=== PATIENT | female | born 1980 | race African-American/Black ===

== ENCOUNTER 2017-06-01 | Emergency (ER) | payer BC, SELFPAY ==
--- NOTE | 2017-06-01 01:38 | EDPHYS ---
Physician Documentation [facility] Name: Catrina Ivy Age: 36 yrs Sex: Female : 1980 Arrival Date: 06/01/2017 Time: 00:55 Bed 19 Private MD: ED Physician Scot Morales HPI: 06/01 01:26 This 36 yrs old Black Female presents to ER via Ambulatory with complaints of Back Pain.gs 01:26 The patient presents with pain that is acute. gs 01:29 The symptoms are located in the low back. Onset: The symptoms/episode began/occurred gs yesterday. The pain does not radiate. Associated signs and symptoms: Pertinent negatives: abdominal pain, constipation, incontinence, numbness, tingling, urinary retention, weakness. The problem was sustained when bending over, when lifting. Modifying factors: the patient symptoms are aggravated by any movement, bending. Severity of symptoms: At their worst the symptoms were moderate, in the emergency department the symptoms are unchanged. The patient has experienced similar episodes in the past, multiple times. 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 - Social history:: Smoking status: Patient/guardian denies using tobacco. ROS: 01:29 All other systems are negative. gs Exam: 01:29 Head/Face: Normocephalic, atraumatic. Eyes: Pupils equal round and reactive to light, gs extra-ocular motions intact. Lids and lashes normal. Conjunctiva and sclera are non-icteric and not injected. Cornea within normal limits. Periorbital areas with no swelling, redness, or edema. ENT: Nares patent. No nasal discharge, no septal abnormalities noted. Tympanic membranes are normal and external auditory canals are clear. Oropharynx with no redness, swelling, or masses, exudates, or evidence of obstruction, uvula midline. Mucous membranes moist. Neck: Trachea midline, no thyromegaly or masses palpated, and no cervical lymphadenopathy. Supple, full range of motion without nuchal rigidity, or vertebral point tenderness. No Meningismus. Chest/axilla: Normal chest wall appearance and motion. Nontender with no deformity. No lesions are appreciated. Cardiovascular: Regular rate and rhythm with a normal S1 and S2. No gallops, murmurs, or rubs. Normal PMI, no JVD. No pulse deficits. Respiratory: Lungs have equal breath sounds bilaterally, clear to auscultation and percussion. No rales, rhonchi or wheezes noted. No increased work of breathing, no retractions or nasal flaring. Abdomen/GI: Soft, non-tender, with normal bowel sounds. No distension or tympany. No guarding or rebound. No evidence of tenderness throughout. Skin: Warm, dry with normal turgor. Normal color with no rashes, no lesions, and no evidence of cellulitis. MS/ Extremity: Pulses equal, no cyanosis. Neurovascular intact. Full, normal range of motion. Neuro: Awake and alert, GCS 15, oriented to person, place, time, and situation. Cranial nerves II-XII grossly intact. Motor strength 5/5 in all extremities. Sensory grossly intact. Cerebellar exam normal. Normal gait. 01:29 Constitutional: The patient appears alert, awake. 01:29 Back: pain, that is mild, of the left low back and right low back. Vital Signs: 01:09 BP 123 / 66; Pulse 68; Resp 16; Temp 97.4(TE); Pulse Ox 100% on R/A; Weight 90.72 kg; lp1 Height 6 ft. 0 in. (182.88 cm); Pain 9/10; 01:09 Body Mass Index 27.12 (90.72 kg, 182.88 cm) lp1 MDM: 01:14 Patient medically screened. 01:29 Differential diagnosis: arthritis, chronic back pain, Ligament Injury ruptured disc. Data reviewed: vital signs, nurses notes. Response to treatment: There is no appreciated change of the patient's symptoms at this time. Administered Medications: No medications were administered Disposition: 01:29 lower back strain, chronic pain. Disposition: 06/01/17 01:38 Discharged to Home. Impression: Encounter for screening, unspecified. - Condition is Stable. - Work release form, Medication Reconciliation Form, Thank You Letter, Antibiotic Education, Prescription Opioid Use form. - Follow up: Private Physician; When: 2 - 3 days. Signatures: Nichol Max, RN RN lp1 Bárbara Lambert RN RN ea Scot Morales MD MD gs
--- NOTE | 2017-06-01 01:38 | ER ---
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 Transition of care: patient was not received from another setting of care. Onset of symptoms was June 01, 2017. Care prior to arrival: None. 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 - Social history:: Smoking status: Patient/guardian denies using tobacco. Screenin:09 Abuse screen: Denies threats or abuse. Denies injuries from another. Nutritional lp1 screening: No deficits noted. Tuberculosis screening: No symptoms or risk factors identified. Fall Risk None identified. Assessment: 01:25 General: Appears in no apparent distress. Behavior is calm, cooperative, appropriate ea for age. Pain: Complains of pain in thoracic area and lumbar area Pain currently is 9 out of 10 on a pain scale. Quality of pain is described as aching. Neuro: Level of Consciousness is awake, alert, obeys commands, Oriented to person, place, time, situation. Cardiovascular: Patient's skin is warm and dry. Respiratory: Airway is patent Respiratory effort is even, unlabored, Respiratory pattern is regular, symmetrical. GI: No signs and/or symptoms were reported involving the gastrointestinal system. : No signs and/or symptoms were reported regarding the genitourinary system. EENT: No signs and/or symptoms were reported regarding the EENT system. Derm: Skin is dry, Skin is normal, Skin temperature is warm. Musculoskeletal: Range of motion: intact in all extremities. 01:48 Reassessment: Patient and/or family updated on plan of care and expected duration. Pain ea level reassessed. Patient is alert, oriented x 3, equal unlabored respirations, skin warm/dry/pink. Vital Signs: 01:09 BP 123 / 66; Pulse 68; Resp 16; Temp 97.4(TE); Pulse Ox 100% on R/A; Weight 90.72 kg; lp1 Height 6 ft. 0 in. (182.88 cm); Pain 9/10; 01:09 Body Mass Index 27.12 (90.72 kg, 182.88 cm) lp1 ED Course: 00:55 Patient arrived in ED. ds1 00:57 Scot Morales MD is Attending Physician. gs 01:07 Triage completed. lp1 01:07 Arm band placed on left wrist. lp1 01:09 Patient has correct armband on for positive identification. lp1 01:25 Bárbara Lambert RN is Primary Nurse. ea 01:47 No provider procedures requiring assistance completed. Patient did not have IV access ea during this emergency room visit. Administered Medications: No medications were administered Outcome: 01:38 Discharge ordered by . gs 01:49 Discharged to home ambulatory, with family. ea 01:49 Condition: unchanged 01:49 Following a medical screening exam, the patient was provided information regarding alternative care sites and resources available per registration personnel. 01:55 Patient left the ED. ea Signatures: Destiney Mccallum ds1 Nichol Max RN RN lp1 Bárbara Lambert, Scot Blanco RN, ea, MD MD
== END 2017-06-01 01:55 | disposition home or self-care (01) ==
CPT/HCPCS: 99281

== ENCOUNTER 2017-12-21 07:43 | Emergency (ER) | payer SELFPAY ==
[2017-12-21] MEDS ORDERED: CETIRIZINE HCL 5 MG TABLET ONE (08:20)
--- NOTE | 2017-12-21 08:50 | EDPHYS ---
Physician Documentation [facility] Name: Catrina Ivy Age: 37 yrs Sex: Female : 1980 Arrival Date: 12/21/2017 Time: 07:46 Bed 18 Private MD: None, None ED Physician Dvaid Aden HPI: 12/21 08:04 This 37 yrs old Black Female presents to ER via Ambulatory with complaints of Cough, snw Congestion. 08:04 This 37 yrs old Black Female presents to ER via Ambulatory with complaints of Cough, snw Congestion. 08:04 The patient or guardian reports cough, described as moderate, flu symptoms, low-grade snw fever, myalgias, no appetite. Onset: The symptoms/episode began/occurred gradually, 1 week(s) ago, and became persistent. Severity of symptoms: At their worst the symptoms were moderate. Associated signs and symptoms: Pertinent positives: rhinorrhea, sore throat. The patient has experienced similar episodes in the past. The patient has not recently seen a physician. 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 - Social history:: Smoking status: Patient/guardian denies using tobacco. - Ebola Screening: : No symptoms or risks identified at this time. ROS: 08:10 Eyes: Negative for injury, pain, redness, and discharge. snw 08:10 Neck: Negative for injury, pain, and swelling, Cardiovascular: Negative for chest pain, palpitations, and edema, Abdomen/GI: Negative for abdominal pain, nausea, vomiting, diarrhea, and constipation, Back: Negative for injury and pain, : Negative for injury, bleeding, discharge, and swelling, MS/Extremity: Negative for injury and deformity, Skin: Negative for injury, rash, and discoloration, Neuro: Negative for headache, weakness, numbness, tingling, and seizure. 08:10 Constitutional: Positive for body aches, fatigue, malaise, poor PO intake. 08:10 ENT: Positive for hoarseness, sinus congestion, sinus pain, sore throat. 08:10 Respiratory: Positive for cough, with rust-colored sputum. Exam: 08:09 Constitutional: This is a well developed, well nourished patient who is awake, alert, snw and in no acute distress. Head/Face: Normocephalic, atraumatic. Eyes: Pupils equal round and reactive to light, extra-ocular motions intact. Lids and lashes normal. Conjunctiva and sclera are non-icteric and not injected. Cornea within normal limits. Periorbital areas with no swelling, redness, or edema. 08:09 Neck: Trachea midline, no thyromegaly or masses palpated, and no cervical lymphadenopathy. Supple, full range of motion without nuchal rigidity, or vertebral point tenderness. No Meningismus. Chest/axilla: Normal chest wall appearance and motion. Nontender with no deformity. No lesions are appreciated. Cardiovascular: Regular rate and rhythm with a normal S1 and S2. No gallops, murmurs, or rubs. Normal PMI, no JVD. No pulse deficits. Respiratory: Lungs have equal breath sounds bilaterally, clear to auscultation and percussion. No rales, rhonchi or wheezes noted. No increased work of breathing, no retractions or nasal flaring. Abdomen/GI: Soft, non-tender, with normal bowel sounds. No distension or tympany. No guarding or rebound. No evidence of tenderness throughout. Back: No spinal tenderness. No costovertebral tenderness. Full range of motion. Skin: Warm, dry with normal turgor. Normal color with no rashes, no lesions, and no evidence of cellulitis. MS/ Extremity: Pulses equal, no cyanosis. Neurovascular intact. Full, normal range of motion. Neuro: Awake and alert, GCS 15, oriented to person, place, time, and situation. Cranial nerves II-XII grossly intact. Motor strength 5/5 in all extremities. Sensory grossly intact. Cerebellar exam normal. Normal gait. 08:09 ENT: TM's: fluid levels, bilaterally, Nose: Nasal mucosa: edematous, Mouth: is normal, Voice: is hoarse. Vital Signs: 08:00 BP 137 / 65; Pulse 59; Resp 16; Temp 98.4(O); Pulse Ox 100% on R/A; Weight 96.16 kg; dh3 Height 6 ft. 0 in. (182.88 cm); Pain 9/10; 09:15 BP 136 / 84; Pulse 67; Resp 16 S; Pulse Ox 100% on R/A; jl7 08:00 Body Mass Index 28.75 (96.16 kg, 182.88 cm) [facility] MDM: 07:53 Patient medically screened. snw 08:55 Data reviewed: vital signs, nurses notes. Data interpreted: Pulse oximetry: on room air snw is 100 %. Counseling: I had a detailed discussion with the patient and/or guardian regarding: the historical points, exam findings, and any diagnostic results supporting the discharge/admit diagnosis, radiology results, the need for outpatient follow up, for definitive care, to return to the emergency department if symptoms worsen or persist or if there are any questions or concerns that arise at home. Response to treatment: There is no appreciated change of the patient's symptoms at this time. Special discussion: Based on the history and exam findings, there is no indication for further emergent testing or inpatient evaluation. I discussed with the patient/guardian the need to see the primary care provider for further evaluation of the symptoms. 12/21 07:58 Order name: Flu; Complete Time: 09:05 snw 12/21 07:58 Order name: Chest Pa And Lat (2 Views) XRAY; Complete Time: 10:25 snw Administered Medications: 08:14 Drug: ZyrTEC - Cetirizine 10 mg Route: PO; jl7 08:44 Follow up: Response: No adverse reaction [facility] Disposition: 09:35 Co-signature as Attending Physician, David Aden MD. rn Disposition: 12/21/17 08:49 Discharged to Home. Impression: Acute bronchitis, Otitis media, unspecified. - Condition is Stable. - Discharge Instructions: Acute Bronchitis, Adult, Otitis Media, Adult, Fever, Adult. - Prescriptions for Zyrtec 10 mg Oral Tablet - take 1 tablet by ORAL route once daily As needed; 20 tablet. Tessalon Perles 100 mg Oral Capsule - take 1 capsule by ORAL route every 8 hours As needed; 15 capsule. Zithromax 500 mg Oral Tablet - take 1 tablet by ORAL route once daily for 5 days; 5 tablet. - Work release form, Medication Reconciliation Form, Thank You Letter, Antibiotic Education, Prescription Opioid Use form. - Follow up: Emergency Department; When: As needed; Reason: Worsening of condition. Follow up: Private Physician; When: 2 - 3 days; Reason: Recheck today's complaints, Continuance of care, Re-evaluation by your physician. Signatures: Dispatcher [employer] EDSummer Mchugh, [employer] WATER METER READER-Csnw David Aden MD MD rn Leal, Jahala, RN RN jl7 Corrections: (The following items were deleted from the chart) 09:16 08:49 12/21/2017 08:49 Discharged to Home. Impression: Acute bronchitis; Otitis media, jl7 unspecified. Condition is Stable. Forms are Medication Reconciliation Form, Thank You Letter, Antibiotic Education, Prescription Opioid Use. Follow up: Emergency Department; When: As needed; Reason: Worsening of condition. Follow up: Private Physician; When: 2 - 3 days; Reason: Recheck today's complaints, Continuance of care, Re-evaluation by your physician. snw
--- NOTE | 2017-12-21 08:50 | ER ---
Nurse's Notes [facility] Name: Catrina Ivy Age: 37 yrs Sex: Female : 1980 Arrival Date: 12/21/2017 Time: 07:46 Bed 18 Private MD: None, None Diagnosis: Acute bronchitis;Otitis media, unspecified Presentation: 12/21 07:52 Presenting complaint: Patient states: Sore throat x 1 week and now with chest jl7 congestion. Transition of care: patient was not received from another setting of care. Onset of symptoms was December 14, 2017. Risk Assessment: Do you want to hurt yourself or someone else? Patient reports no desire to harm self or others. Initial Sepsis Screen: Does the patient meet any 2 criteria? No. Patient's initial sepsis screen is negative. Does the patient have a suspected source of infection? No. Patient's initial sepsis screen is negative. Care prior to arrival: None. 07:52 Method Of Arrival: Ambulatory jl7 07:52 Acuity: ELICEO 4 jl7 Triage Assessment: 07:55 General: Appears in no apparent distress. uncomfortable, Behavior is calm, cooperative, jl7 appropriate for age. Pain: Complains of pain in "My chest roper when I breathe in." Pain currently is 9 out of 10 on a pain scale. EENT: Throat. Neuro: Level of Consciousness is awake, alert, obeys commands, Oriented to person, place, time, situation. Cardiovascular: Patient's skin is warm and dry. Respiratory: Airway is patent Respiratory effort is even, unlabored, Respiratory pattern is regular, symmetrical, Breath sounds are clear. Derm: Skin is pink, warm \\T\\ dry. Musculoskeletal: No signs and/or symptoms reported regarding the musculoskeletal system. 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 - Social history:: Smoking status: Patient/guardian denies using tobacco. - Ebola Screening: : No symptoms or risks identified at this time. Screenin:00 Abuse screen: Denies threats or abuse. Denies injuries from another. Nutritional jl7 screening: No deficits noted. Tuberculosis screening: No symptoms or risk factors identified. Fall Risk None identified. Assessment: 08:55 Reassessment: Patient appears in no apparent distress at this time. No changes from jl7 previously documented assessment. Patient and/or family updated on plan of care and expected duration. Pain level reassessed. Patient is alert, oriented x 3, equal unlabored respirations, skin warm/dry/pink. Cardiovascular: Patient's skin is warm and dry. Respiratory: Airway is patent Respiratory effort is even, unlabored, Respiratory pattern is regular, symmetrical. Vital Signs: 08:00 BP 137 / 65; Pulse 59; Resp 16; Temp 98.4(O); Pulse Ox 100% on R/A; Weight 96.16 kg; 3 Height 6 ft. 0 in. (182.88 cm); Pain 9/10; 09:15 BP 136 / 84; Pulse 67; Resp 16 S; Pulse Ox 100% on R/A; jl7 08:00 Body Mass Index 28.75 (96.16 kg, 182.88 cm) [facility] ED Course: 07:46 Patient arrived in ED. mr 07:47 None, None is Private Physician. mr 07:48 Robert Kenyon, DENIS is Primary Nurse. jl7 07:49 Summer Cote FNP-C is [facility]. snw 07:49 David Aden MD is Attending Physician. snw 07:54 Triage completed. jl7 07:55 Arm band placed on right wrist. jl7 08:00 Patient has correct armband on for positive identification. Bed in low position. Call jl light in reach. Side rails up X 1. Pulse ox on. NIBP on. 08:04 Flu and/or RSV swab sent to lab. 3 08:30 Chest Pa And Lat (2 Views) XRAY In Process Unspecified. EDMS 09:16 No provider procedures requiring assistance completed. Patient did not have IV access jl7 during this emergency room visit. Administered Medications: 08:14 Drug: ZyrTEC - Cetirizine 10 mg Route: PO; jl7 08:44 Follow up: Response: No adverse reaction jl7 Outcome: 08:49 Discharge ordered by . snw 09:16 Discharged to home ambulatory. jl7 09:16 Condition: stable 09:16 Discharge instructions given to patient, Instructed on discharge instructions, follow up and referral plans. medication usage, Demonstrated understanding of instructions, follow-up care, medications, Prescriptions given X 3. 09:16 Patient left the ED. jl7 Signatures: Dispatcher [employer] EDMS Summer Cote, SABRIN[employer] HYDRAULIC MINER BLASTING-Aricw KalebGay Jahala, RN RN jl7 Belkys Barnes 3 Corrections: (The following items were deleted from the chart) 08:10 07:55 BP 137 / 65; Pulse 59bpm; Resp 16bpm; Pulse Ox 100% RA; Temp 98.4F Oral; Pain dh3 11/05; dh3
--- NOTE | 2017-12-21 09:10 | RAD REPORT ---
EXAM DESCRIPTION: RAD - Chest Pa And Lat (2 Views) - 12/21/2017 8:35 am CLINICAL HISTORY: Chest pain, cough and congestion COMPARISON: October 2012 TECHNIQUE: PA and lateral views of the chest were obtained. FINDINGS: The lungs are clear. Lung markings are similar to comparison. Heart size is normal and ce ntral vasculature is within normal limits. No pleural effusion or pneumothorax seen. No acute bone finding. Prominent scoliosis noted with scoliosis rods in place. No aortic abnormality. IMPRESSION: No acute cardiopulmonary process. No significant interval change.
== END 2017-12-21 09:16 | disposition home or self-care (01) ==
LOC: ER 07:43
DX: J20.9 Acute bronchitis, unspecified (principal); H66.90 Otitis media, unspecified, unspecified ear; Z88.1 Allergy status to other antibiotic agents
CPT/HCPCS: 71046; 87804; 99284

== ENCOUNTER 2018-04-18 18:04 | Emergency (ER) | payer SELFPAY ==
--- NOTE | 2018-04-18 20:23 | EDPHYS ---
Physician Documentation [facility] Name: Catrina Ivy Age: 37 yrs Sex: Female : 1980 Arrival Date: 04/18/2018 Time: 18:06 Bed 11 Private MD: ED Physician Scot Morales HPI: 04/18 21:25 This 37 yrs old Black Female presents to ER via Ambulatory with complaints of Rash. gs 21:25 The patient's rash thought to be caused by an unknown cause. The rash is located on the gs body diffusely. The rash can be described as erythematous. Onset: The symptoms/episode began/occurred 2 day(s) ago. Associated signs and symptoms: Pertinent positives: itching, Pertinent negatives: fever, swelling of lips, vomiting. Severity of symptoms: At their worst the symptoms were moderate in the emergency department the symptoms are unchanged. Treatment given at home: Benadryl. The patient has not experienced similar symptoms in the past. 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 - Social history:: Smoking status: Patient/guardian denies using tobacco. - Ebola Screening: : No symptoms or risks identified at this time. ROS: 21:25 All other systems are negative. gs Exam: 21:25 Head/Face: Normocephalic, atraumatic. Eyes: Pupils equal round and reactive to light, gs extra-ocular motions intact. Lids and lashes normal. Conjunctiva and sclera are non-icteric and not injected. Cornea within normal limits. Periorbital areas with no swelling, redness, or edema. ENT: Nares patent. No nasal discharge, no septal abnormalities noted. Tympanic membranes are normal and external auditory canals are clear. Oropharynx with no redness, swelling, or masses, exudates, or evidence of obstruction, uvula midline. Mucous membranes moist. Neck: Trachea midline, no thyromegaly or masses palpated, and no cervical lymphadenopathy. Supple, full range of motion without nuchal rigidity, or vertebral point tenderness. No Meningismus. Chest/axilla: Normal chest wall appearance and motion. Nontender with no deformity. No lesions are appreciated. Cardiovascular: Regular rate and rhythm with a normal S1 and S2. No gallops, murmurs, or rubs. Normal PMI, no JVD. No pulse deficits. Respiratory: Lungs have equal breath sounds bilaterally, clear to auscultation and percussion. No rales, rhonchi or wheezes noted. No increased work of breathing, no retractions or nasal flaring. Abdomen/GI: Soft, non-tender, with normal bowel sounds. No distension or tympany. No guarding or rebound. No evidence of tenderness throughout. Back: No spinal tenderness. No costovertebral tenderness. Full range of motion. MS/ Extremity: Pulses equal, no cyanosis. Neurovascular intact. Full, normal range of motion. Neuro: Awake and alert, GCS 15, oriented to person, place, time, and situation. Cranial nerves II-XII grossly intact. Motor strength 5/5 in all extremities. Sensory grossly intact. Cerebellar exam normal. Normal gait. 21:25 Constitutional: The patient appears in no acute distress, alert, awake. 21:25 Skin: mild fine erythematous rash face legs and hands scantly distributed. Vital Signs: 18:17 BP 126 / 53; Pulse 80; Resp 18 S; Temp 98.2(TE); Pulse Ox 99% on R/A; Weight 92.71 kg aa5 (R); Height 5 ft. 11 in. (180.34 cm) (R); Pain 0/10; 18:17 Body Mass Index 28.51 (92.71 kg, 180.34 cm) aa5 MDM: 20:18 Patient medically screened. 21:25 Data reviewed: vital signs, nurses notes. Response to treatment: There is no gs appreciated change of the patient's symptoms at this time, and as a result, I will discharge patient. Administered Medications: No medications were administered Disposition: 04/18/18 20:23 Discharged to Home. Impression: Rash and other nonspecific skin eruption. - Condition is Stable. - Discharge Instructions: Rash, [id number]. - Prescriptions for Prednisone 20 mg Oral Tablet - take 1 tablet by ORAL route once daily for 5 days; 5 tablet. Zyrtec 10 mg Oral Tablet - take 1 tablet by ORAL route once daily As needed; 20 tablet. - Medication Reconciliation Form, Thank You Letter, Antibiotic Education, Prescription Opioid Use form. - Follow up: Michael Kay MD; When: 2 - 3 days; Reason: Re-evaluation by your physician. Signatures: Kerry Culver RN RN iw Kelli Orr RN RN aa5 Scot Morales MD MD gs Corrections: (The following items were deleted from the chart) 20:31 20:23 04/18/2018 20:23 Discharged to Home. Impression: Rash and other nonspecific skin iw eruption. Condition is Stable. Forms are Medication Reconciliation Form, Thank You Letter, Antibiotic Education, Prescription Opioid Use. Follow up: Michael Kay; When: 2 - 3 days; Reason: Re-evaluation by your physician. gs
--- NOTE | 2018-04-18 20:23 | ER ---
Nurse's Notes [facility] Name: Catrina Ivy Age: 37 yrs Sex: Female : 1980 Arrival Date: 04/18/2018 Time: 18:06 Bed 11 Private MD: Diagnosis: Rash and other nonspecific skin eruption Presentation: 04/18 18:15 Presenting complaint: Patient states: diffuse rash that it's itchy and began Sunday. aa5 Transition of care: patient was not received from another setting of care. Onset of symptoms was March 2018. Risk Assessment: Do you want to hurt yourself or someone else? Patient reports no desire to harm self or others. Initial Sepsis Screen: Does the patient meet any 2 criteria? No. Patient's initial sepsis screen is negative. Does the patient have a suspected source of infection? No. Patient's initial sepsis screen is negative. Care prior to arrival: None. 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 - Social history:: Smoking status: Patient/guardian denies using tobacco. - Ebola Screening: : No symptoms or risks identified at this time. Screenin:15 Abuse screen: Denies threats or abuse. Denies injuries from another. Nutritional iw screening: No deficits noted. Tuberculosis screening: No symptoms or risk factors identified. Fall Risk None identified. Assessment: 20:14 General: Appears in no apparent distress. Behavior is calm, cooperative. Pain: Denies iw pain. Neuro: Level of Consciousness is awake, alert, obeys commands. Cardiovascular: Patient's skin is warm and dry. Respiratory: Respiratory effort is even, unlabored, Respiratory pattern is regular. GI: No signs and/or symptoms were reported involving the gastrointestinal system. Derm: Skin is intact, is healthy with good turgor. Musculoskeletal: Range of motion: intact in all extremities. Vital Signs: 18:17 BP 126 / 53; Pulse 80; Resp 18 S; Temp 98.2(TE); Pulse Ox 99% on R/A; Weight 92.71 kg aa5 (R); Height 5 ft. 11 in. (180.34 cm) (R); Pain 0/10; 18:17 Body Mass Index 28.51 (92.71 kg, 180.34 cm) aa5 ED Course: 18:06 Patient arrived in ED. mr 18:15 Arm band placed on. aa5 18:16 Triage completed. aa5 18:20 Patient has correct armband on for positive identification. iw 19:29 Kerry Culver, RN is Primary Nurse. iw 20:03 Scot Morales MD is Attending Physician. gs 20:15 No provider procedures requiring assistance completed. Patient did not have IV access iw during this emergency room visit. 20:22 Michael Kay MD is Referral Physician. gs Administered Medications: No medications were administered Outcome: 20:23 Discharge ordered by . gs 20:30 Discharged to home ambulatory. iw 20:30 Condition: good 20:30 Discharge instructions given to family, Instructed on discharge instructions, follow up and referral plans. medication usage, Demonstrated understanding of instructions, follow-up care, medications, Prescriptions given X 2. 20:31 Patient left the ED. iw Signatures: Gay Manuel mr Kerry Culver, RN RN Kelli Orr RN RN aa Scot Morales MD MD
== END 2018-04-18 20:31 | disposition home or self-care (01) ==
LOC: ER 18:04
DX: R21 Rash and other nonspecific skin eruption (principal); Z88.6 Allergy status to analgesic agent
CPT/HCPCS: 99282

== ENCOUNTER 2018-07-20 16:32 | Emergency (ER) | payer SELFPAY ==
--- NOTE | 2018-07-20 17:34 | RAD REPORT ---
EXAM DESCRIPTION: RAD - Chest Single View - 07/20/2018 5:27 pm CLINICAL HISTORY: Cough;Chest pain Chest pain. COMPARISON: Chest Pa And Lat (2 Views) dated 12/21/2017; CHEST SINGLE VIEW dated 11/11/2012 FINDINGS: Portable technique limits examination quality. Mild right upper lobe lung opacity is present, likely pneumonia. The heart is normal in size. No disp laced fractures.Scoliosis hardware noted. IMPRESSION: Early/developing right upper lobe pneumonia.
[2018-07-20 17:43] LABS: Protime INR 1.11
[2018-07-20 17:49] LABS: Absolute Monocytes 0.7 K/uL (0.1-1.3); Absolute Neutrophil 2.4 K/uL (1.8-8.0); Basophils % 0.7 % (0-1.3); Eosinophils % 1.8 % (0-4.4); Hematocrit 33.4 % (36.0-45.0); Lymphocytes % 37.8 % (15.3-44.8); MPV 10.5 fL (7.6-11.3); Monocytes % 14.1 % (3.3-12.3); RBC Red Blood Cell Count 4.86 M/uL (3.86-4.86)
[2018-07-20 18:01] LABS: ALT/SGPT 24 U/L (12-78); AST/SGOT 16 U/L (15-37); Albumin 3.8 g/dL (3.4-5.0); Alkaline Phosphatase 55 U/L (45-117); BUN Blood Urea Nitrogen 16 mg/dL (7-18); Bicarbonate 28 mmol/L (21-32); Bilirubin Direct < 0.1 mg/dL (0-0.2); Bilirubin Total 0.2 mg/dL (0.2-1.0); Glucose Level 81 mg/dL (74-106); NT PRO-BNP 17 pg/mL (<125); Potassium 3.8 mmol/L (3.5-5.1); Sodium Level 141 mmol/L (136-145); Troponin (Emerg Dept Use Only) < 0.02 ng/mL (0.0-0.045)
[2018-07-20 18:30] LABS: Blood Morphology Comment NOTED (NOT SEEN); Hypochromasia 1+; Platelet Estimate ADEQ; Urine White Blood Cell Casts OK
[2018-07-20] MEDS ORDERED: KETOROLAC 30 MG/ML INJ ONE (18:35)
--- NOTE | 2018-07-20 19:48 | RAD REPORT ---
EXAM DESCRIPTION: CT - Chest For Pe Angio - 07/20/2018 7:36 pm CLINICAL HISTORY: Chest pain. CHEST PAIN COMPARISON: CTANGIO CHEST FOR PE dated 11/12/2012 TECHNIQUE: CT angiogram of the pulmonary arteries was performed with MIP. All CT scans are performed using dose optimization technique as appropriate and may include automated exposure control or mA/KV adjustment according to patient size. FINDINGS: No evidence of pulmonary thromboembolism. No acute aortic finding demonstrated. Patchy airspace opacity is seen in the superior segment of the right lower lobe, likely representing pneumonia. No significant pericardial or pleural fluid. Scoliosis hardware is present in the spine. IMPRESSION: No evidence of pulmonary thromboembolism. Pneumonia is noted in the superior segment right lower lobe.
--- NOTE | 2018-07-20 20:17 | EDPHYS ---
Physician Documentation [facility] Name: Catrina Ivy Age: 37 yrs Sex: Female : 1980 Arrival Date: 07/20/2018 Time: 16:40 Bed 2 Private MD: QUIN Physician Bryan Butler HPI: 07/20 17:15 This 37 yrs old Black Female presents to ER via Ambulatory with complaints of Chest cp Pain. 17:15 The patient or guardian reports chest pain that is located primarily in the anterior cp chest wall. 17:15 The pain does not radiate. Associated signs and symptoms: Pertinent positives: cough, cp Pertinent negatives: diaphoresis, dizziness, headache, lower extremity pain, lower extremity swelling, lightheadedness, recent travel, shortness of breath, syncope, vomiting. The chest pain is described as sharp. Duration: The patient or guardian reports multiple episodes, that wax and wane. Modifying factors: the symptoms are aggravated by cough, deep breath. 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 - Social history:: Smoking status: Patient/guardian denies using tobacco. - Ebola Screening: : No symptoms or risks identified at this time. ROS: 17:20 Constitutional: Negative for body aches, chills, fever, poor PO intake. cp 17:20 Eyes: Negative for injury, pain, redness, and discharge. cp 17:20 ENT: Negative for drainage from ear(s), ear pain, sore throat, difficulty swallowing, difficulty handling secretions. 17:20 Cardiovascular: Positive for chest pain, with cough, Negative for edema, palpitations. 17:20 Respiratory: Positive for cough, Negative for shortness of breath, wheezing. 17:20 Abdomen/GI: Negative for abdominal pain, nausea, vomiting, and diarrhea, black/tarry stool, rectal bleeding. 17:20 Back: Negative for pain at rest, pain with movement, radiated pain. 17:20 : Negative for urinary symptoms, vaginal bleeding, vaginal discharge. 17:20 Skin: Negative for rash. 17:20 Neuro: Negative for altered mental status, dizziness, headache, numbness, syncope, near syncope, weakness. 17:20 All other systems are negative. Exam: 17:25 Constitutional: The patient appears in no acute distress, alert, awake, cp non-diaphoretic, non-toxic, well developed, well nourished. 17:25 Head/Face: Normocephalic, atraumatic. cp 17:25 Eyes: Periorbital structures: appear normal, Conjunctiva: normal, no exudate, no injection, Sclera: no appreciated abnormality, Lids and lashes: appear normal, bilaterally. 17:25 ENT: External ear(s): are unremarkable, Ear canal(s): are normal, clear, TM's: are normal, no evidence of bulging, no erythema, Nose: is normal, Mouth: Lips: moist, Oral mucosa: pink and intact, moist, Posterior pharynx: is normal, airway is patent, no erythema, no exudate. 17:25 Neck: ROM/movement: is normal, is supple, without pain, no range of motions limitations, no meningismus, no nuchal rigidity, Lymph nodes: no appreciated lymphadenopathy. 17:25 Chest/axilla: Inspection: normal, Palpation: crepitus, is not appreciated, tenderness, that is mild, of the mid-sternal area, that partially reproduces the patient's complaints. 17:25 Cardiovascular: Rate: normal, Rhythm: regular, Pulses: Pulses are 2+ in right radial artery and left radial artery. Heart sounds: murmur, not appreciated, rub, not appreciated, gallop, not appreciated, Edema: is not appreciated, JVD: is not appreciated. 17:25 Respiratory: the patient does not display signs of respiratory distress, Respirations: normal, no use of accessory muscles, no retractions, no splinting, no tachypnea, labored breathing, is not present, Breath sounds: decreased breath sounds, are not appreciated, stridor, is not appreciated, wheezing: is not appreciated. 17:25 Abdomen/GI: Inspection: abdomen appears normal, Bowel sounds: active, all quadrants, Palpation: abdomen is soft and non-tender, in all quadrants, rebound tenderness, is not appreciated, voluntary guarding, is not appreciated, involuntary guarding, is not appreciated. 17:25 Back: pain, is absent, ROM is normal. 17:25 Skin: no rash present. 17:25 Neuro: Orientation: to person, place \T\ time. Mentation: is normal, Cerebellar function: is grossly normal, Motor: moves all fours, strength is normal, Sensation: is normal. 17:45 ECG was reviewed by the Attending Physician. cp Vital Signs: 16:46 BP 117 / 67; Pulse 76; Resp 16; Temp 97.7; Pulse Ox 98% on R/A; Weight 84.37 kg; Height la1 5 ft. 11 in. (180.34 cm); 16:58 BP 121 / 69; Pulse 68; Resp 18; Pulse Ox 100% ; hj 17:34 BP 113 / 69; Pulse 65; Resp 18; Pulse Ox 100% on R/A; hj 18:24 BP 124 / 82; Pulse 83; Resp 18; Pulse Ox 100% on R/A; hj 19:10 BP 121 / 65; Pulse 70; Resp 16; Temp 97.3(T); Pulse Ox 99% ; rr5 20:26 BP 129 / 70; Pulse 78; Resp 17; Temp 97.5; Pulse Ox 99% on R/A; rr5 16:46 Body Mass Index 25.94 (84.37 kg, 180.34 cm) la1 MDM: 16:43 Patient medically screened. cp 17:30 Differential diagnosis: abnormal EKG, acute myocardial infarction, acute pericarditis, cp costochondritis, pericarditis, pleurisy, pneumonia, pneumothorax, pulmonary embolus, stable angina, unstable angina. 20:15 Data reviewed: vital signs, nurses notes, lab test result(s), EKG, radiologic studies, cp CT scan, plain films, and as a result, I will discharge patient. 20:15 Test interpretation: by ED physician or midlevel provider: ECG. cp 20:16 Counseling: I had a detailed discussion with the patient and/or guardian regarding: the cp historical points, exam findings, and any diagnostic results supporting the discharge/admit diagnosis, lab results, radiology results, the need for outpatient follow up, a family practitioner, to return to the emergency department if symptoms worsen or persist or if there are any questions or concerns that arise at home. 20:16 Response to treatment: the patient's symptoms have markedly improved after treatment, cp VSS. No signs of respiratory distress observed. Will discharge to home for continued monitoring. 07/20 17:18 Order name: Basic Metabolic Panel 07/20 17:18 Order name: CBC with Diff 07/20 17:18 Order name: LFT's 07/20 17:18 Order name: Magnesium; Complete Time: 18:16 07/20 17:18 Order name: NT PRO-BNP; Complete Time: 18:16 07/20 17:18 Order name: PT-INR; Complete Time: 19:56 07/20 18:00 Interpretation: Reviewed. 07/20 17:18 Order name: Troponin (emerg Dept Use Only); Complete Time: 18:16 07/20 17:18 Order name: Influenza Screen (a \T\ B); Complete Time: 18:16 07/20 17:18 Order name: Strep; Complete Time: 18:16 07/20 17:19 Order name: Basic Metabolic Panel; Complete Time: 18:16 EDOR 07/20 18:16 Interpretation: Normal except: GFR 74. 07/20 17:19 Order name: CBC with Automated Diff; Complete Time: 18:38 [facility] 07/20 18:17 Interpretation: Normal except: HGB 10.6; HCT 33.4; MCV 68.7; MCH 21.7; MCHC 31.6; RDW cp 16.8; MN% 14.1. 07/20 17:19 Order name: Liver (Hepatic) Function; Complete Time: 18:16 [facility] 07/20 17:53 Order name: CBC Smear Scan; Complete Time: 18:38 [facility] 07/20 18:15 Order name: Throat Culture [facility] 07/20 17:18 Order name: XRAY Chest (1 view); Complete Time: 18:00 07/20 17:18 Order name: EKG; Complete Time: 17:20 07/20 17:18 Order name: Cardiac monitoring; Complete Time: 17:23 07/20 17:18 Order name: EKG - Nurse/Tech; Complete Time: 17:38 07/20 17:18 Order name: IV Saline Lock; Complete Time: 17:38 07/20 17:18 Order name: Labs collected and sent; Complete Time: 17:38 cp 07/20 17:18 Order name: O2 Per Protocol; Complete Time: 17:23 cp 07/20 17:18 Order name: O2 Sat Monitoring; Complete Time: 17:23 cp 07/20 18:40 Order name: LAB Add On cp 07/20 18:43 Order name: D-Dimer; Complete Time: 19:56 [facility] 07/20 18:52 Order name: CT Chest For PE Angio; Complete Time: 19:56 cp EC:45 Rate is 64 beats/min. Rhythm is regular. DE interval is normal. QRS interval is normal. cp QT interval is normal. Interpreted by me. Reviewed by me. Administered Medications: 18:18 Drug: TORadol - Ketorolac 15 mg Route: IVP; Site: right antecubital; hj 18:24 Follow up: Response: No adverse reaction hj 20:08 Drug: LevOfloxacin 750 mg Route: PO; rr5 20:30 Follow up: Response: No adverse reaction; Medication administered at discharge. rr5 Disposition: 07/20/18 20:17 Discharged to Home. Impression: Pneumonia due to other specified bacteria - Right upper lobe. - Condition is Stable. - Discharge Instructions: Community-Acquired Pneumonia, Adult. - Prescriptions for Ibuprofen 800 mg Oral Tablet - take 1 tablet by ORAL route every 8 hours As needed take with food; 30 tablet. Levaquin 750 mg Oral Tablet - take 1 tablet by ORAL route once daily for 7 days continue evening of 07-21-2018; 6 tablet. - Medication Reconciliation Form, Thank You Letter, Antibiotic Education, Prescription Opioid Use, Work release form form. - Follow up: Private Physician; When: 2 - 3 days; Reason: Recheck today's complaints. - Problem is new. - Symptoms have improved. Addendum: 07/23/2018 08:39 Co-signature as Attending Physician, Bryan Butler MD I agree with the assessment and c ge plan of care. Signatures: Dispatcher [employer] Bryan Shipley MD MD cha Attema, Lee, RN RN la1 Kei Cottrell RN RN Bryan Boston PA PA cp Roque, Raymond, RN RN rr5 Corrections: (The following items were deleted from the chart) 07/20 19:46 18:41 D-DIMER+[id number] ordered. EDMS EDMS 20:26 20:17 07/20/2018 20:17 Discharged to Home. Impression: Pneumonia due to other specified rr5 bacteria - Right upper lobe. Condition is Stable. Forms are Medication Reconciliation Form, Thank You Letter, Antibiotic Education, Prescription Opioid Use. Follow up: Private Physician; When: 2 - 3 days; Reason: Recheck today's complaints. Problem is new. Symptoms have improved. cp
--- NOTE | 2018-07-20 20:17 | ER ---
Nurse's Notes [facility] Name: Catrina Ivy Age: 37 yrs Sex: Female : 1980 Arrival Date: 07/20/2018 Time: 16:40 Bed 2 Private MD: Diagnosis: Pneumonia due to other specified bacteria-Right upper lobe Presentation: 07/20 16:46 Presenting complaint: Patient states: Sharp chest pain with breathing and coughing. la1 Transition of care: patient was not received from another setting of care. Onset of symptoms was July 20, 2018. Risk Assessment: Do you want to hurt yourself or someone else? Patient reports no desire to harm self or others. Initial Sepsis Screen: Does the patient meet any 2 criteria? No. Patient's initial sepsis screen is negative. Does the patient have a suspected source of infection? No. Patient's initial sepsis screen is negative. Care prior to arrival: None. 16:46 Method Of Arrival: Ambulatory la1 16:46 Acuity: ELICEO 3 la1 Triage Assessment: 16:52 General: Appears in no apparent distress. uncomfortable, Behavior is calm, cooperative, hj appropriate for age. Pain: Complains of pain in chest. Cardiovascular: Reports chest pain, Capillary refill < 3 seconds Patient's skin is warm and dry. 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 - Social history:: Smoking status: Patient/guardian denies using tobacco. - Ebola Screening: : No symptoms or risks identified at this time. Screenin:52 Abuse screen: Denies threats or abuse. Denies injuries from another. Nutritional hj screening: No deficits noted. Tuberculosis screening: No symptoms or risk factors identified. Fall Risk None identified. Assessment: 16:52 Pain: Pain does not radiate. Pain began. hj 16:52 General: Appears in no apparent distress. uncomfortable, Behavior is calm, cooperative, hj appropriate for age. Neuro: Level of Consciousness is awake, alert, obeys commands, Oriented to person, place, time, situation, Appropriate for age. Cardiovascular: Reports chest pain, Capillary refill < 3 seconds Patient's skin is warm and dry. Respiratory: Airway is patent Respiratory effort is even, unlabored, Respiratory pattern is regular, symmetrical. GI: No signs and/or symptoms were reported involving the gastrointestinal system. : No signs and/or symptoms were reported regarding the genitourinary system. EENT: No signs and/or symptoms were reported regarding the EENT system. Derm: No signs and/or symptoms reported regarding the dermatologic system. Musculoskeletal: No signs and/or symptoms reported regarding the musculoskeletal system. 17:34 Reassessment: Patient and/or family updated on plan of care and expected duration. Pain hj level reassessed. Patient is alert, oriented x 3, equal unlabored respirations, skin warm/dry/pink. awaiting results and POC;. 18:38 Reassessment: Patient and/or family updated on plan of care and expected duration. Pain hj level reassessed. Patient is alert, oriented x 3, equal unlabored respirations, skin warm/dry/pink. awaiting POC:. 19:05 General: Appears in no apparent distress. comfortable, Behavior is calm, cooperative, rr5 appropriate for age. Pain: Complains of pain in chest Pain does not radiate. Pain Quality of pain is described as aching, Pain began gradually, Is intermittent. 19:05 Neuro: Level of Consciousness is awake, alert, obeys commands, Oriented to person, rr5 place, time, situation, Appropriate for age. Cardiovascular: Reports chest pain, Capillary refill < 3 seconds Patient's skin is warm and dry. Respiratory: Airway is patent Respiratory effort is even, unlabored, Respiratory pattern is regular, symmetrical. GI: No signs and/or symptoms were reported involving the gastrointestinal system. : No signs and/or symptoms were reported regarding the genitourinary system. EENT: No signs and/or symptoms were reported regarding the EENT system. Derm: Skin is intact, Skin temperature is warm. Musculoskeletal: No signs and/or symptoms reported regarding the musculoskeletal system. 20:00 Reassessment: Patient appears in no apparent distress at this time. Patient is alert, rr5 oriented x 3, equal unlabored respirations, skin warm/dry/pink. no complaints made awaiting for result. 20:31 Reassessment: Patient appears in no apparent distress at this time. Patient is alert, rr5 oriented x 3, equal unlabored respirations, skin warm/dry/pink. discharge instruction given and explained without complaints made given by patricia. Vital Signs: 16:46 BP 117 / 67; Pulse 76; Resp 16; Temp 97.7; Pulse Ox 98% on R/A; Weight 84.37 kg; Height la1 5 ft. 11 in. (180.34 cm); 16:58 BP 121 / 69; Pulse 68; Resp 18; Pulse Ox 100% ; hj 17:34 BP 113 / 69; Pulse 65; Resp 18; Pulse Ox 100% on R/A; hj 18:24 BP 124 / 82; Pulse 83; Resp 18; Pulse Ox 100% on R/A; hj 19:10 BP 121 / 65; Pulse 70; Resp 16; Temp 97.3(T); Pulse Ox 99% ; rr5 20:26 BP 129 / 70; Pulse 78; Resp 17; Temp 97.5; Pulse Ox 99% on R/A; rr5 16:46 Body Mass Index 25.94 (84.37 kg, 180.34 cm) la1 ED Course: 16:40 Patient arrived in ED. es 16:43 Bryan Herron PA is PHCP. cp 16:43 Bryan Butler MD is Attending Physician. cp 16:46 Triage completed. la1 16:46 Arm band placed on left wrist. la1 16:51 Kei Cottrell, DENIS is Primary Nurse. hj 16:52 Patient has correct armband on for positive identification. Placed in gown. Bed in low hj position. Call light in reach. Side rails up X 1. laboratory monitor on. Pulse ox on. NIBP on. 16:52 Patient maintains SpO2 saturation greater than 95% on room air. hj 17:25 X-ray completed. Portable x-ray completed in exam room. Patient tolerated procedure la2 well. 17:27 XRAY Chest (1 view) In Process Unspecified. EDMS 17:33 Initial lab(s) drawn, by me, sent to lab. EKG done, by ED staff, reviewed by Bryan HUNT. Inserted saline lock: 22 gauge in right antecubital area, using aseptic technique. Blood collected. 19:37 CT Chest For PE Angio In Process Unspecified. EDMS 20:25 No provider procedures requiring assistance completed. IV discontinued, intact, rr5 bleeding controlled, No redness/swelling at site. Pressure dressing applied. Administered Medications: 18:18 Drug: TORadol - Ketorolac 15 mg Route: IVP; Site: right antecubital; 18:24 Follow up: Response: No adverse reaction 20:08 Drug: LevOfloxacin 750 mg Route: PO; rr5 20:30 Follow up: Response: No adverse reaction; Medication administered at discharge. rr5 Outcome: 20:17 Discharge ordered by MD. cp 20:25 Discharged to home ambulatory. rr5 20:25 Condition: stable 20:25 Discharge instructions given to patient, Instructed on discharge instructions, follow up and referral plans. medication usage, Demonstrated understanding of instructions, follow-up care, medications, Prescriptions given X 2. 20:26 Patient left the ED. rr5 Signatures: Dispatcher [employer] EDMS Ines Graham Lee, RN RN la1 Kei Cottrell RN RN Bryan Boston, PA PA Azucena Jones la2 Shaun Gilliland, RN RN rr5
[2018-07-20] MEDS ORDERED: levoFLOXacin 750 MG TAB ONE (20:19)
--- NOTE | 2018-07-21 10:07 | EKG ---
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
== END 2018-07-20 20:26 | disposition home or self-care (01) ==
LOC: ER 16:32
DX: J15.8 Pneumonia due to other specified bacteria (principal); E03.9 Hypothyroidism, unspecified; E11.9 Type 2 diabetes mellitus without complications
CPT/HCPCS: 36415; 71045; 71275; 80048; 80076; 83735; 83880; 84484; 85025; 85379; 85610; 87070; 87081; 87804; 93005; 96374; 99285; Q9967

== ENCOUNTER 2019-06-28 10:58 | Emergency (ER) | payer SELFPAY ==
--- OUTSIDE RECORDS SUMMARY | 2019-06-28 11:00 | XMS REPORT ---
:1980 Author Organization [facility] t Address [address] [place] [address] Care Team Providers Name Role Phone Unavailable Unavailable Unavailable Problems This patient has no known problems. Allergies, Adverse Reactions, Alerts This patient has no known allergies or adverse reactions. Medications This patient has no known medications. Results Test Description Test Time Test Comments Text Results Atomic Results Result Comments MM, U/S, 2019-04-23 Diagnostic workup per #[id number] BREAST, 13:35:00 radiologist?->YesReason for - MM, U/S, BR EAST, BILATERAL Exam:->N63.0 BILATERALULTRASOUND OF BOTH BREASTS: 04/23/2019 prior exams were available for comparison. Real-time ultrasound of both breasts was performed. No solid or cystic mass is seen within either breast.IMPRESSION: NEGATIVE There is no sonographic evidence of malignancy. A 1 year screening mammogram is recommended. Jennifer Rojo M.D. km/:04/23/2019 13:35:10 Normal BiRad 1-2 Ultrasound BI-RADS: 1 Negative [id number] , DIGITAL 2019-04-23 Diagnostic workup per #[id number] MAMMO, 13:33:00 radiologist?->YesReason for - MM, DIGITAL MAMMO, DIAGNOSTIC, Exam:->N63.0 DIAGNOSTIC, WITH ELAN, WITH ELAN, BILATERAL INCLUDING BILATERAL CADBILATERAL DIGITAL INCLUDING CAD DIAGNOSTIC MAMMOGRAM 3D/2D WITH CAD: 04/23/2019No prior exams were available for comparison. The tissue of both breasts is heterogeneously dense. This may lower the sensitivity of mammography. Tomosynthesis 3D imaging of the breast was also performed. Current study was also evaluated with a Computer Aided Detection (CAD) system. No significant masses, calcifications, or other findings are seen in either breast. IMPRESSION: NEGATIVEThere is no mammographic evidence of malignancy. A 1 year screening mammogram is recommended. Jennifer mitchell/katrin:04/23/2019 13:33:52 Normal BiRad 1-2 Mammogram BI-RADS: 1 Negative
[2019-06-28] MEDS ORDERED: ONDANSETRON 4 MG/2 ML VIAL ONE (11:21)
[2019-06-28] MEDS ORDERED: MEPERIDINE HCL 25 MG/0.5 ML ONE ×2 (11:21→13:13)
[2019-06-28 11:47] LABS: Basophils % 0.5 % (0-1.3); Hematocrit 37.2 % (36.0-45.0); Lymphocytes % 20.6 % (15.3-44.8); MPV 9.6 fL (7.6-11.3); RBC Red Blood Cell Count 5.42 M/uL (3.86-4.86)
[2019-06-28 11:55] LABS: ALT/SGPT 20 U/L (12-78); AST/SGOT 11 U/L (15-37); Albumin 3.9 g/dL (3.4-5.0); Alkaline Phosphatase 59 U/L (45-117); BUN Blood Urea Nitrogen 18 mg/dL (7-18); Bicarbonate 26 mmol/L (21-32); Bilirubin Direct < 0.1 mg/dL (0-0.2); Bilirubin Total 0.3 mg/dL (0.2-1.0); Glucose Level 118 mg/dL (74-106); Lipase 471 U/L (73-393); Sodium Level 139 mmol/L (136-145)
[2019-06-28 12:36] LABS: Anisocytosis 1+; Blood Morphology Comment NOTED (NOT SEEN); Hypochromasia 1+; Ovalocytes 1+; Platelet Estimate ADEQ
[2019-06-28 12:54] LABS: Urine Blood 2+ (NEG); Urine Glucose NEGATIVE (NEG); Urine Protein 1+ (NEG); Urine pH >8.5 (5.0-7.0)
--- NOTE | 2019-06-28 13:13 | RAD REPORT ---
EXAM DESCRIPTION: CT - Abdomen Pelvis W Contrast - 06/28/2019 12:52 pm CLINICAL HISTORY: Abdominal pain COMPARISON: 2012 TECHNIQUE: Computed axial tomography of the abdomen pelvis was obtained. 100 cc Isovue-300 was admin istered intravenously. Oral contrast was not requested which limits evaluation of bowel. All CT scans are performed using dose optimization technique as appropriate and may include automated exposure control or mA/KV adjustment according to patient size. FINDINGS: The liver, spleen, pancreas, and adrenals appear unremarkable. Tiny nonobstructing left renal calculus. Delay of concentration of contrast within the right kidney. Mild to moderate right hydronephrosis. Ri ght ureter is dilated. 4 millimeter calculus distal right ureter Hounsfield unit 863. Hysterectomy. No evidence of diverticulitis. Arana rods have been placed into a scoliotic spine IMPRESSION: 4 millimeter calculus distal right ureter resulting in mild to moderate right hydronephr osis
[2019-06-28] MEDS ORDERED: KETOROLAC 30 MG/ML INJ ONE (13:34)
[2019-06-28] MEDS ORDERED: TAMSULOSIN 0.4 MG SR CAP ONE (13:34)
--- NOTE | 2019-06-28 14:56 | ER ---
Nurse's Notes [facility] Name: Catrina Ivy Age: 38 yrs Sex: Female : 1980 Arrival Date: 06/28/2019 Time: 11: Bed 20 Private MD: Diagnosis: Hydronephrosis with renal and ureteral calculous obstruction Presentation: 06/27 11:01 Chief complaint: EMS states: R sided abdominal pain that started this morning. Pain is ca1 described as sharp and constant. Reports N/V. Denies fever. Coronavirus screen: Proceed with normal triage. Patient denies a cough. Patient denies shortness of breath or difficulty breathing. Patient denies measured and/or subjective temperature greater than 100.4F prior to today's visit. Patient denies travel on a cruise ship or to a country the [facility] currently lists as an affected area. Patient denies contact with known and/or suspected case of COVID-19. Ebola Screen: Patient negative for fever greater than or equal to 101.5 degrees Fahrenheit, and additional compatible Ebola Virus Disease symptoms Patient denies exposure to infectious person. Patient denies travel to an Ebola-affected area in the 21 days before illness onset. No symptoms or risks identified at this time. Initial Sepsis Screen: Does the patient meet any 2 criteria? No. Patient's initial sepsis screen is negative. Does the patient have a suspected source of infection? No. Patient's initial sepsis screen is negative. Risk Assessment: Do you want to hurt yourself or someone else? Patient reports no desire to harm self or others. Onset of symptoms was June 28, 2019. 11:01 Method Of Arrival: EMS: [facility] ca1 11:01 Acuity: ELICEO 3 ca1 Triage Assessment: 11:07 General: Appears in no apparent distress. uncomfortable, Behavior is cooperative, ca1 appropriate for age. Pain: Complains of pain in right lower quadrant Pain does not radiate. Pain currently is 10 out of 10 on a pain scale. Quality of pain is described as sharp, Pain began 4 hours ago. Is continuous. EENT: No signs and/or symptoms were reported regarding the EENT system. Neuro: Level of Consciousness is awake, alert, obeys commands, Oriented to person, place, time, situation, Appropriate for age. Cardiovascular: Heart tones S1 S2 present Capillary refill Patient's skin is warm and dry. Respiratory: Airway is patent Respiratory effort is even, unlabored, Respiratory pattern is regular, symmetrical, Breath sounds are clear bilaterally. GI: Abdomen is round non-distended, Bowel sounds present X 4 quads. Abd is soft X 4 quads Abdomen is tender to palpation in right lower quadrant. : No signs and/or symptoms were reported regarding the genitourinary system. Derm: Skin is intact, is healthy with good turgor, Skin is pink, warm \T\ dry. Musculoskeletal: Circulation, motion, and sensation intact. Capillary refill < 3 seconds. 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 - Social history:: Smoking status: Patient denies any tobacco usage or history of. - Family history:: not pertinent. - Hospitalizations: : No recent hospitalization is reported. Screenin:10 Abuse screen: Denies threats or abuse. Denies injuries from another. Nutritional ca1 screening: No deficits noted. Tuberculosis screening: No symptoms or risk factors identified. Fall Risk IV access (20 points). Assessment: 11:10 Reassessment: SEE TRIAGE NOTES. ca1 12:16 Reassessment: Patient appears in no apparent distress at this time. Patient and/or ca1 family updated on plan of care and expected duration. Pain level reassessed. Patient is alert, oriented x 3, equal unlabored respirations, skin warm/dry/pink. 13:04 Reassessment: pt requesting more pain medication, Dr. Aden notified, verbal order for iw repeat demerol 25 mg IVP Patient states symptoms have not improved. 13:36 Reassessment: Patient appears in no apparent distress at this time. Patient is alert, ca1 oriented x 3, equal unlabored respirations, skin warm/dry/pink. 15:30 Reassessment: Patient appears in no apparent distress at this time. Patient and/or ls4 family updated on plan of care and expected duration. Pain level reassessed. Patient is alert, oriented x 3, equal unlabored respirations, skin warm/dry/pink. PT WAITING FOR RIDE. Patient states feeling better. Patient states symptoms have improved. Vital Signs: 11:01 BP 119 / 63; Pulse 70; Resp 17; Temp 99.5(O); Pulse Ox 100% on R/A; Weight 87.09 kg ca1 (R); Height 5 ft. 11 in. (180.34 cm) (R); Pain 10/10; 12:16 BP 110 / 58; Pulse 80; Resp 17 S; Pulse Ox 96% on R/A; Pain 8/10; ca1 15:33 BP 102 / 47; Pulse 72; Resp 12; Pulse Ox 100% on R/A; Pain 0/10; ls4 11:01 Body Mass Index 26.78 (87.09 kg, 180.34 cm) ca1 ED Course: 11:01 Patient arrived in ED. ca1 11:02 David Aden MD is Attending Physician. rn 11:03 Triage completed. ca1 11:07 Arm band placed on right wrist. ca1 11:10 Patient has correct armband on for positive identification. Placed in gown. Bed in low ca1 position. Call light in reach. Side rails up X 1. Pulse ox on. NIBP on. 11:22 No provider procedures requiring assistance completed. Initial lab(s) drawn, by me, ca1 sent to lab. Urine collected: clean catch specimen, Flu and/or RSV swab sent to lab. Inserted saline lock: 20 gauge in left antecubital area, using aseptic technique. Blood collected. 11:36 Flu Sent. ca1 12:15 Kay Bergman, RN is Primary Nurse. ca1 12:52 CT Abd/Pelvis - IV Contrast Only In Process Unspecified. EDMS 12:52 CT completed. Patient tolerated procedure well. Patient moved back from CT. bq 15:35 IV discontinued, intact, bleeding controlled, No redness/swelling at site. Pressure ls4 dressing applied. Administered Medications: 11:23 Drug: Zofran (Ondansetron) 4 mg Route: IVP; Site: left antecubital; ca1 12:15 Follow up: Response: No adverse reaction; Nausea is decreased ca1 11:25 Drug: Demerol 25 mg {Note: RASS - 0.} Route: IVP; Site: left antecubital; ca1 12:16 Follow up: Response: No adverse reaction; Pain is decreased ca1 13:12 Drug: Demerol 25 mg Route: IVP; Site: left antecubital; iw 14:00 Follow up: Response: No adverse reaction; Marked relief of symptoms ls4 13:25 Drug: Flomax 0.4 mg Route: PO; ca1 14:02 Follow up: Response: No adverse reaction ls4 13:36 Drug: TORadol 30 mg Route: IVP; Site: left antecubital; ca1 14:02 Follow up: Response: No adverse reaction; Marked relief of symptoms ls4 Outcome: 14:55 Discharge ordered by . rn 16:40 Discharged to home ambulatory. ca1 16:40 Condition: stable 16:40 Discharge instructions given to patient, Instructed on discharge instructions, follow up and referral plans. medication usage, Demonstrated understanding of instructions, follow-up care, medications, Prescriptions given X 3. 16:42 Patient left the ED. ls4 Signatures: Dispatcher [employer] EDMS Celia Lin Irene, RN RN iw David Aden MD MD rn Stewart, Lisa, RN RN ls4 Kay Bergman RN RN ca1 Corrections: (The following items were deleted from the chart) 15:34 15:30 Reassessment: Patient appears in no apparent distress at this time. Patient ls4 and/or family updated on plan of care and expected duration. Pain level reassessed. Patient is alert, oriented x 3, equal unlabored respirations, skin warm/dry/pink. PT WAITING FOR RIDE. ls4
--- NOTE | 2019-06-28 14:56 | EDPHYS ---
Physician Documentation [facility] Name: Catrina Ivy Age: 38 yrs Sex: Female : 1980 Arrival Date: 06/28/2019 Time: 11: Bed 20 Private MD: ED Physician David Aden HPI: 06/27 11:07 This 38 yrs old Black Female presents to ER via EMS with complaints of Abdominal Pain. rn 11:07 The patient presents with abdominal pain right lower quadrant. Onset: The rn symptoms/episode began/occurred 2 day(s) ago. The symptoms do not radiate. Associated signs and symptoms: Pertinent positives: nausea and vomiting, diarrhea, fever, Pertinent negatives: blood in stools, vaginal discharge. The symptoms are described as achy, crampy, sharp. Modifying factors: The symptoms are alleviated by nothing, the symptoms are aggravated by nothing. Severity of pain: At its worst the pain was moderate in the emergency department the pain is unchanged. The patient has not experienced similar symptoms in the past. The patient has not recently seen a physician. 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 - Social history:: Smoking status: Patient denies any tobacco usage or history of. - Family history:: not pertinent. - Hospitalizations: : No recent hospitalization is reported. 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 Exam: 11:07 Constitutional: This is a well developed, well nourished patient who is awake, alert, rn and in no acute distress. Head/Face: Normocephalic, atraumatic. Eyes: Pupils equal round and reactive to light, extra-ocular motions intact. Lids and lashes normal. Conjunctiva and sclera are non-icteric and not injected. Cornea within normal limits. Periorbital areas with no swelling, redness, or edema. Cardiovascular: Regular rate and rhythm. No pulse deficits. Respiratory: No increased work of breathing, no retractions or nasal flaring. Abdomen/GI: soft, + mild RLQ tenderness, no rebound, no masses Skin: Warm, dry MS/ Extremity: Pulses equal, no cyanosis. Neurovascular intact. Full, normal range of motion. Equal circumference. Neuro: Awake and alert, GCS 15 Vital Signs: 11:01 BP 119 / 63; Pulse 70; Resp 17; Temp 99.5(O); Pulse Ox 100% on R/A; Weight 87.09 kg ca1 (R); Height 5 ft. 11 in. (180.34 cm) (R); Pain 10/10; 12:16 BP 110 / 58; Pulse 80; Resp 17 S; Pulse Ox 96% on R/A; Pain 8/10; ca1 15:33 BP 102 / 47; Pulse 72; Resp 12; Pulse Ox 100% on R/A; Pain 0/10; ls4 11:01 Body Mass Index 26.78 (87.09 kg, 180.34 cm) ca1 MDM: 11:02 Patient medically screened. rn 14:51 Differential diagnosis: appendicitis, non-specific abd pain, Pyelonephritis, rn Ureterolithiasis, urinary tract infection, ovarian cyst. Data reviewed: vital signs, nurses notes, lab test result(s), radiologic studies, CT scan, and as a result, I will discharge patient. Counseling: I had a detailed discussion with the patient and/or guardian regarding: the historical points, exam findings, and any diagnostic results supporting the discharge/admit diagnosis, lab results, radiology results, the need for outpatient follow up, to return to the emergency department if symptoms worsen or persist or if there are any questions or concerns that arise at home. Response to treatment: the patient's symptoms have markedly improved after treatment, and as a result, I will discharge patient. Special discussion: Based on the patient's Hx, exam, and Dx evaluation, there is no indication for emergent surgery or inpatient Tx. It is understood by the patient/guardian that if the Sx's persist or worsen they need to return immediately for re-evaluation. I discussed with the patient/guardian in detail that at this point there is no indication for admission to the hospital. It is understood, however, that if the symptoms persist or worsen the patient needs to return immediately for re-evaluation. ED course: Pt markedly improved, ct shows distal ureteral stone, no evidence of infection in urine. Will dc home with pain meds and return precautions. Seems much more comfortable. . 14:59 ED course: P[place] checked, scores of 321/140/000/290, has active hydrocodone rn prescription, was quantity 90, will dc home with flomax and zofran prn, along with return precautions. . 06/27 11:04 Order name: Basic Metabolic Panel; Complete Time: 11:56 rn 06/27 11:04 Order name: CBC with Diff; Complete Time: 13:09 rn 06/27 11:04 Order name: Creatinine for Radiology; Complete Time: 11:56 rn 06/27 11:04 Order name: Hepatic Function; Complete Time: 11:56 rn 06/27 11:04 Order name: Lipase; Complete Time: 11:56 rn 06/27 11:04 Order name: Flu; Complete Time: 13:09 rn 06/27 11:04 Order name: CT Abd/Pelvis - IV Contrast Only; Complete Time: 13:19 rn 06/27 11:37 Order name: Urine Dipstick--Ancillary (enter results); Complete Time: 13:09 eb 06/27 12:37 Order name: Manual Differential; Complete Time: 13:09 EDMS 06/27 11:04 Order name: IV Saline Lock; Complete Time: 11:36 rn 06/27 11:04 Order name: Labs collected and sent; Complete Time: 11:36 rn Administered Medications: 11:23 Drug: Zofran (Ondansetron) 4 mg Route: IVP; Site: left antecubital; ca1 12:15 Follow up: Response: No adverse reaction; Nausea is decreased ca1 11:25 Drug: Demerol 25 mg {Note: RASS - 0.} Route: IVP; Site: left antecubital; ca1 12:16 Follow up: Response: No adverse reaction; Pain is decreased ca1 13:12 Drug: Demerol 25 mg Route: IVP; Site: left antecubital; iw 14:00 Follow up: Response: No adverse reaction; Marked relief of symptoms ls4 13:25 Drug: Flomax 0.4 mg Route: PO; ca1 14:02 Follow up: Response: No adverse reaction ls4 13:36 Drug: TORadol 30 mg Route: IVP; Site: left antecubital; ca1 14:02 Follow up: Response: No adverse reaction; Marked relief of symptoms ls4 Disposition: 06/28/19 14:55 Discharged to Home. Impression: Hydronephrosis with renal and ureteral calculous obstruction. - Condition is Stable. - Discharge Instructions: Kidney Stones, Hydronephrosis, Dietary Guidelines to Help Prevent Kidney Stones. - Prescriptions for Zofran ODT 4 mg Oral tablet,disintegrating - place 1 tablet by TRANSLINGUAL route every 8 hours As needed; 15 tablet. Flomax 0.4 mg Oral Capsule, Sust. Release 24 hr - take 1 capsule by ORAL route once daily 1/2 hour following the same meal each day. Stop taking once you feel stone has passed and pain has improved, can cause lightheadedness and low blood pressure.; 3 capsule. Diclofenac Sodium 75 mg Oral Tablet, Delayed Release (E.C.) - take 1 tablet by ORAL route 2 times per day; 20 tablet. - Medication Reconciliation Form, Thank You Letter, Antibiotic Education, Prescription Opioid Use form. - Follow up: Private Physician; When: As needed; Reason: Recheck today's complaints, Re-evaluation by your physician. - Problem is new. - Symptoms have improved. 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 Impression: Hydronephrosis with renal and ls4 ureteral calculous obstruction. Condition is Stable. Forms are Medication Reconciliation Form, Thank You Letter, Antibiotic Education, Prescription Opioid Use. Follow up: Private Physician; When: As needed; Reason: Recheck today's complaints, Re-evaluation by your physician. Problem is new. Symptoms have improved. rn
[2019-06-28 17:04] VITALS: TEMP 99.5
[2019-06-28 17:07] VITALS: BP 102/47; O2SAT 100
== END 2019-06-28 16:42 | disposition home or self-care (01) ==
LOC: ER 10:58
DX: N13.2 Hydronephrosis with renal and ureteral calculous obstruction (principal); E03.9 Hypothyroidism, unspecified; E11.9 Type 2 diabetes mellitus without complications; Z88.1 Allergy status to other antibiotic agents
CPT/HCPCS: 36415; 74177; 80048; 80076; 81003; 83690; 85025; 87804; 96374; 96375; 99284; J2175; J2405; Q9967

== ENCOUNTER 2020-08-29 10:58 | Emergency (ER) | payer OTHER, SELFPAY ==
--- OUTSIDE RECORDS SUMMARY | 2020-08-29 11:06 | XMS REPORT | Continuity of Care Document ---
:1980 Author Organization [facility] t Address [address] [place] [address] Care Team Providers Name Role Phone Sherice Luna Primary Care Physician Unavailable Aster Culver DO Attending Clinician Ramón CHRISTIANSON Attending Clinician Only, Test Attending Clinician Unavailable Melissa Ballard Attending Clinician Fahed Attending Clinician Fahed Admitting Clinician Problems Condition Condition Condition Status Onset Resolution Last Treating Co mments Source Name Details Category Date Date Treatment Clinician Date Diabetes Problem Active 2019-08-22 Mem oria mellitus 1-01 04:01:19 l (disorder) Diabetes 00:00: He rmann mellitus 00 (disorder) Active 02/26/2013 Problem 08/22/2019 [facility] Backache Problem Active 2019-08-22 Mem oria (finding) 04:01:19 l Backache Rubin n (finding) Active Problem 08/22/2019 [facility] History of Past Illness Condition Condition Condition Status Onset Resolution Last Treating Co mments Source Name Details Category Date Date Treatment Clinician Date Spondylosi Problem 2019-08-22 2019-08-22 Memoria s without 6-24 04:01:19 04:01:19 l myelopathy 17:00: Rubin n or Spondylosi 00 radiculopa s without thy, myelopathy lumbar or region radiculopa thy, lumbar region 08/20/2019 08/22/2019 [facility] Allergies, Adverse Reactions, Alerts Allergy Allergy Status Severity Reaction(s) Onset Inactive Treating Comm ents Source Name Type Date Date Clinician No Known No Known Active Leisa a Medicati Medicati l on on Hossein Gonzalez s s Social History Social Habit Start Date Stop Date Quantity Comments Source Sex Assigned At [facility] Medications Ordered Filled Start Stop Current Ordering Indication Dosage Frequency Signature Comments Components Source Medication Medication Date Date Medication? Clinician (SIG) Name Name Misc 0 No 200 mL, Memoria Medication 6-24 Soln-IV, l 18:00: IV, Once, first dose 08/20/19 13:00:00 CDT, stop date 08/20/19 13:00:00 CDT Saline Lock No 10 mL, Pankaj yoli Flush -24 Soln, IV l 17:53: Push, As Indicated PRN for flush, first dose 08/20/19 12:53:00 CDT Morphine No 2 mg = 0.2 Mem oria 6-24 mL, l 17:53: Injection, IV Push, q5min PRN for pain, first dose 08/20/19 12:53:00 CDT Ketorolac 2019- No Notes: Memori a 6-24 "Restricte l 17:53: d: No more than 5 days of therapy from any route of administra tion." Demerol HCl No 12.5 mg = M emoria 6-24 0.5 mL, l 17:53: Injection, IV Push, Once PRN for shivers, first dose 08/20/19 12:53:00 CDT Levalbutero No 0.63 mg = M emoria l 0.21 6-24 3 mL, l MG/ML 17:53: Soln, NEB, Rubin n Inhalant 00 Once PRN Solution for [Xopenex] wheezing, first dose 08/20/19 12:53:00 CDT Ondansetron No 4 mg = 2 Me moria 6-24 mL, l 17:53: Injection, IV Push, q15min PRN for nausea, order duration: 2 doses, first dose 08/20/19 12:53:00 CDT, stop date Limited # of times Promethazin 2020-0 No 12.5 mg = M emoria e 6-24 0.5 mL, l 17:53: Injection, 00 IM, Once PRN for vomiting, first dose 08/20/19 12:53:00 CDT LR 1,000 mL 2020-0 No 1,000 mL, M emoria 6-24 IV, 75 l 17:53: mL/hr, start date 08/20/19 12:53:00 CDT, 2.04, m2 propofol 2020-0 No 50 mg = 5 Pankaj yoli 6-24 mL, l 17:47: Emulsion, IV, Once, first dose 08/20/19 12:47:00 CDT, stop date 08/20/19 12:47:00 CDT lidocaine 2020-0 No 20 mg = 1 Mem oria 6-24 mL, l 17:47: Injection, IV, Once, first dose 08/20/19 12:47:00 CDT, stop date 08/20/19 12:47:00 CDT midazolam 2020-0 No 2 mg = 2 Pankaj yoli 6-24 mL, l 17:43: Injection, IV, Once, first dose 08/20/19 12:43:00 CDT, stop date 08/20/19 12:43:00 CDT fentaNYL 2020-0 No 100 mcg = Pankaj yoli 6-24 2 mL, l 17:43: Injection, IV, Once, first dose 08/20/19 12:43:00 CDT, stop date 08/20/19 12:43:00 CDT LR 1,000 mL 2020-0 No 1,000 mL, M emoria 6-24 IV, 30 l 16:48: mL/hr, start date 08/20/19 11:48:00 CDT, 2.04, m2 Lidocaine 2020-0 No 0.2 mL, Memor ia 2% 0.2 mL 6-24 Injection, l IV Start 16:48: Subcutaneo [facility] [[facility]] 00 us, Once PRN for other (see comment), first dose 08/20/19 11:48:00 CDT tiZANidine 2020-0 Yes 4 mg = 1 Mem oria 4 mg oral 6-18 tabs, l tablet 19:51: Oral, As [place] 00 Indicated, at bedtime, pain gabapentin Yes 300 mg = 1 M emoria 300 MG Oral 6-18 caps, l Capsule 19:50: Oral, TID, Herm lisa 00 pain 12 HR 2019-0 Yes 10 mg = 1 Memoria Hydrocodone 6-18 caps, l Bitartrate 19:50: Oral, As Her nettles 10 MG 00 Indicated, Extended PRN only, Release 0 Oral Refill(s), Capsule pain Metformin 0 Yes mg tabs, Pankaj yoli hydrochlori 6-18 Oral, BID, l de 500 MG 19:36: 0 [place] Oral Tablet 00 Refill(s) Vital Signs Vital Name Observation Time Observation Value Comments Source Heart Rate 2019-08-20 19:00:00 [facility] [place] Respitory Rate 2019-08-20 19:00:00 Memori al [facility]sein Systolic (mm Hg) 2019-08-20 19:00:00 Pankaj rial [place]sein Diastolic (mm Hg) 2019-08-20 19:00:00 Mem orial [place] Heart Rate 2019-08-20 18:40:00 [facility] [place] Respitory Rate 2019-08-20 18:40:00 Memori al [place] Systolic (mm Hg) 2019-08-20 18:40:00 Pankaj rial [place]sein Diastolic (mm Hg) 2019-08-20 18:40:00 Mem orial [place] Heart Rate 2019-08-20 18:30:00 [facility] [place] Respitory Rate 2019-08-20 18:30:00 Memori al [place] Systolic (mm Hg) 2019-08-20 18:30:00 Pankaj rial [place]sein Diastolic (mm Hg) 2019-08-20 18:30:00 Mem orial [facility] Temperature Oral (F) 2019-08-20 17:50:00 36.3 [facility] [place] Temperature Oral (F) 2019-08-20 16:49:00 37 [facility] [place] Height 2019-08-20 16:49:00 179.5 cm [facility] Height 2019-08-14 19:34:00 179.5 cm [facility] Hossein Procedures Procedure Date / Time Performed Performing Clinician Sourc e DESTRUCTION BY NEUROLYTIC 2019-08-20 17:47:00 Me morial Hossein AGENT PARAVERTEBRAL FACET JT NERVE W/ IMAGE LUMB/SACRAL EACH [id number] (Right)<sup>1</sup> DESTRUCTION BY NEUROLYTIC 2019-08-20 17:47:00 Me morial Hossein AGT PARARVERT FACET JT W/IMAGE LUM/SAC [place]LE JT [id number] (Right)<sup>2</sup> Hysterectomy 2014-02-26 06:00:00 [facility] nettles Back<sup>3</sup> 1990-02-26 06:00:00 [facility] Arvind ann Plan of Care Planned Activity Planned Date Details Comments Source Future Scheduled 2019-10-[address] [facility] - Test 00:00:00 (#1) [code = [facility] INFLUENZA VACCINE (#1)] Future Scheduled 1999-09-[address] [facility] - Test 00:00:00 malignant neoplasm Medical C enter of cervix (procedure) [code = 079467683] Encounters Start End Encounter Admission Attending Care Care Encounter Source Date/Time Date/Time Type Type Clinicians Facility Department ID 2020-03-05 2020-03-05 Emergency [facility] [id number] 03:34:00 05:15:00 Sylvie Cobb [id number] [place] [id number] [place] [id number] 2020-02-16 2020-02-16 Emergency [facility] [id number] 19:41:00 23:54:00 Garrett Cobb [id number] [place] [id number] [place] [id number] 2019-09-17 2019-09-17 Laboratory Only, Pcp [facility] [id number] 11:26:53 11:41:53 Only Test PRIMARY [id number] [facility] [id number] [place] [id number] 2019-09-09 2019-09-09 Emergency [place] [id number] 00:20:05 02:34:00 Gloria Cobb [id number] [place] [id number] [place] [id number] 2019-08-20 2019-08-20 Outpatient Fahed, [id number] 11:26:44 14:15:00 Felipe 8 Results Test Description Test Test Comments Results Result Sour e Time Comments LABORATORY [address] 17:13:00 MM, U/S, BREAST, 2019-03- Diagnostic #[id number] BILATERAL 26 workup per - MM, U/S, BREAST, 13:35:00 radiologist?-> BILATERALULTRASOUND OF YesReason for BOTH BREASTS: Exam:->N63.0 04/23/2019 prior exams were available for comparison. Real-time ultrasound of both breasts was performed. No solid or cystic mass is seen within either breast.IMPRESSION: NEGATIVE There is no sonographic evidence of malignancy. A 1 year screening mammogram is recommended. Aaron Rojo M.D. km/:04/23/2019 13:35:10 Normal [facility] 1-2 Ultrasound BI-RADS: 1 Negative [id number] , DIGITAL 2019-03- Diagnostic #[id number] MAMMO, 26 workup per - MM, DIGITAL MAMMO, DIAGNOSTIC, WITH 13:33:00 radiologist?-> DIAGNOSTIC, WITH ELAN, ELAN, BILATERAL YesReason for BILATERAL INCLUDING INCLUDING CAD Exam:->N63.0 CADBILATERAL DIGITAL DIAGNOSTIC MAMMOGRAM 3D/2D WITH CAD: 04/23/2019No prior [...] A 1 year screening mammogram is recommended. Aaron Rojo M.D. km/penrad:04/23/2019 13:33:52 Normal [facility] 1-2 Mammogram BI-RADS: 1 Negative
--- NOTE | 2020-08-29 11:24 | ER ---
Nurse's Notes [facility] Name: Catrina Ivy Age: 39 yrs Sex: Female : 1980 Arrival Date: 08/29/2020 Time: 10:58 Bed 2 Private MD: Diagnosis: Laceration without foreign body of right thumb without damage to nail Presentation: 08/29 11:04 Chief complaint: Patient states: Lac on R thumb by a slicer 10 mins [employer]. Bleeding ca1 controlled. Coronavirus screen: Client denies travel out of the [place] in the last 14 days. At this time, the client does not indicate any symptoms associated with coronavirus-19. Ebola Screen: Patient negative for fever greater than or equal to 101.5 degrees Fahrenheit, and additional compatible Ebola Virus Disease symptoms Patient denies exposure to infectious person. Patient denies travel to an Ebola-affected area in the 21 days before illness onset. No symptoms or risks identified at this time. Complicating Factors: There are no complicating factors for this patient. Initial Sepsis Screen: Does the patient meet any 2 criteria? No. Patient's initial sepsis screen is negative. Does the patient have a suspected source of infection? No. Patient's initial sepsis screen is negative. Risk Assessment: Do you want to hurt yourself or someone else? Patient reports no desire to harm self or others. Onset of symptoms was August 29, 2020. 11:04 Method Of Arrival: Ambulatory ca1 11:04 Acuity: ELICEO 4 ca1 Historical: - Allergies: 11:10 Amoxicillin; ca1 - PMHx: 11:10 Diabetes - NIDDM; Hypothyroidism; scoliosis; ca1 - Immunization history:: Client reports receiving the 2nd dose of the Covid vaccine, Client reports receiving the 1st dose of the Covid vaccine, Last tetanus immunization: < 5 years ago Flu vaccine is up to date. - Social history:: Smoking status: Patient denies any tobacco usage or history of. Screenin:10 Abuse screen: Denies threats or abuse. Denies injuries from another. Nutritional ca1 screening: No deficits noted. Tuberculosis screening: No symptoms or risk factors identified. Fall Risk None identified. Assessment: 11:37 General: Appears in no apparent distress. comfortable, Behavior is calm, cooperative, tr6 appropriate for age. Pain: Complains of pain in right thumb. Neuro: No deficits noted. Cardiovascular: No deficits noted. Respiratory: No deficits noted. GI: No deficits noted. : No deficits noted. EENT: No deficits noted. Derm: Wound noted right thumb. Musculoskeletal: No deficits noted. Injury Description: Laceration is clean, not bleeding. 11:38 Reassessment: site cleaned, dermabond, steristrip and dressed with bandaid. tr6 Vital Signs: 11:04 BP 116 / 50; Pulse 72; Resp 16 S; Temp 98.5(O); Pulse Ox 100% on R/A; Weight 88.45 kg ca1 (R); Height 5 ft. 11 in. (180.34 cm) (R); Pain 2/10; 11:04 Body Mass Index 27.20 (88.45 kg, 180.34 cm) ca1 ED Course: 10:58 Patient arrived in ED. ds1 11:03 [facility] Vo [facility]-C [facility]. kb 11:03 Bryan Butler MD is Attending Physician. kb 11:04 Arm band placed on right wrist. ca1 11:09 Triage completed. ca1 11:10 Patient has correct armband on for positive identification. Bed in low position. Call ca1 light in reach. Side rails up X2. Pulse ox on. NIBP on. 11:29 Krystle Ascencio, RN is Primary Nurse. tr6 11:39 No provider procedures requiring assistance completed. Patient did not have IV access tr6 during this emergency room visit. Administered Medications: No medications were administered Outcome: 11:23 Discharge ordered by . kb 11:39 Discharged to home tr6 11:39 Condition: good 11:39 Discharge instructions given to patient, Instructed on discharge instructions, follow up and referral plans. safety practices, Demonstrated understanding of instructions, follow-up care, medications. 12:26 Patient left the ED. tr6 Signatures: Rody Vo FNP-C FNP-Ckb [place], Demi ds1 Kay Bergman RN RN ca1 Krystle Ascencio RN RN tr6
--- NOTE | 2020-08-29 11:24 | EDPHYS ---
Physician Documentation [facility] Name: Catrina Ivy Age: 39 yrs Sex: Female : 1980 Arrival Date: 08/29/2020 Time: 10:58 Bed 2 Private MD: QUIN Physician Bryan Butler HPI: 08/29 12:02 This 39 yrs old Black Female presents to ER via Ambulatory with complaints of kb Laceration - to Finger. 12:02 The patient has a laceration related to: cooking, occurred at work, and there are no kb complicating factors. The injury was accidental. The laceration(s) is(are) located on the palmar aspect of distal phalanx of right thumb. Onset: The symptoms/episode began/occurred just prior to arrival. Associated signs and symptoms: The patient has no apparent associated signs or symptoms. The patient has not experienced similar symptoms in the past. The patient has not recently seen a physician. Pt was slicing tomatoes with a slicer and accidentally cut right thumb. . Historical: - Allergies: 11:10 Amoxicillin; ca1 - PMHx: 11:10 Diabetes - NIDDM; Hypothyroidism; scoliosis; ca1 - Immunization history:: Client reports receiving the 2nd dose of the Covid vaccine, Client reports receiving the 1st dose of the Covid vaccine, Last tetanus immunization: < 5 years ago Flu vaccine is up to date. - Social history:: Smoking status: Patient denies any tobacco usage or history of. ROS: 11:58 Constitutional: Negative for fever, chills, and weight loss, MS/Extremity: Negative for kb injury and deformity, Neuro: Negative for headache, weakness, numbness, tingling, and seizure. 11:58 Skin: Positive for laceration(s), of the palmar aspect of distal phalanx of right thumb. Exam: 11:58 Constitutional: This is a well developed, well nourished patient who is awake, alert, kb and in no acute distress. ENT: Moist Mucous membranes Respiratory: Respirations even and unlabored. No increased work of breathing, no retractions or nasal flaring. MS/ Extremity: Pulses equal, no cyanosis. Neurovascular intact. Full, normal range of motion. Neuro: Awake and alert, GCS 15, oriented to person, place, time, and situation. Moves all extremities. Normal gait. Psych: Awake, alert, with orientation to person, place and time. Behavior, mood, and affect are within normal limits. 11:58 Skin: injury, laceration(s), the wound is approximately 0.5 cm(s), of the palmar aspect of distal phalanx of right thumb, that can be described as clean, no foreign body, irregular, without bleeding, well approximated, unable to pull skin apart. Vital Signs: 11:04 BP 116 / 50; Pulse 72; Resp 16 S; Temp 98.5(O); Pulse Ox 100% on R/A; Weight 88.45 kg ca1 (R); Height 5 ft. 11 in. (180.34 cm) (R); Pain 04/07; 11:04 Body Mass Index 27.20 (88.45 kg, 180.34 cm) ca1 MDM: 11:03 Patient medically screened. kb 11:11 Data reviewed: vital signs, nurses notes. Data interpreted: Pulse oximetry: on room air kb is 100 %. Interpretation: normal. Counseling: I had a detailed discussion with the patient and/or guardian regarding: the historical points, exam findings, and any diagnostic results supporting the discharge/admit diagnosis, the need for outpatient follow up, a family practitioner, to return to the emergency department if symptoms worsen or persist or if there are any questions or concerns that arise at home. 08/29 11:21 Order name: Dermabond; Complete Time: 11:29 kb 08/29 11:22 Order name: Wound Care; Complete Time: 11:29 kb Administered Medications: No medications were administered Disposition Summary: 08/29/20 11:23 Discharge Ordered Location: Home kb Condition: Stable kb Diagnosis - Laceration without foreign body of right thumb without damage to nail kb Followup: kb - With: Emergency Department - When: As needed - Reason: Worsening of condition Followup: kb - With: Private Physician - When: 2 - 3 days - Reason: Recheck today's complaints, Continuance of care, Re-evaluation by your physician Discharge Instructions: - Discharge Summary Sheet kb - Laceration Care, Adult, [id number] kb Forms: - Medication Reconciliation Form kb - Thank You Letter kb - Antibiotic Education kb - Prescription Opioid Use kb Addendum: 08/30/2020 13:17 Co-signature as Attending Physician, Bryan Butler MD I agree with the assessment and c ge plan of care. Signatures: Rody Vo, ASL INTERPRETER-C ASL INTERPRETER-Ckb Bryan Butler MD MD cha Acob, Cheryl, RN RN ca1
[2020-08-29] MEDS ORDERED: DERMABOND SKIN ADHESIVE TOP ONE (11:54)
[2020-08-29 12:36] VITALS: BP 116/50; TEMP 98.5; O2SAT 100
== END 2020-08-29 12:26 | disposition home or self-care (01) ==
LOC: ER 10:58
DX: S61.011A Laceration without foreign body of right thumb without damage to nail, initial encounter (principal); W45.8XXA Other foreign body or object entering through skin, initial encounter; Y93.G3 Activity, cooking and baking; Y92.89 Other specified places as the place of occurrence of the external cause; Y99.8 Other external cause status; Z88.1 Allergy status to other antibiotic agents
CPT/HCPCS: 99283

== ENCOUNTER 2020-10-01 13:00 | Emergency (ER) | payer OTHER ==
--- OUTSIDE RECORDS SUMMARY | 2020-10-01 13:03 | XMS REPORT | Continuity of Care Document ---
:1980 Author Organization [facility] t Address [address] [place] [address] Care Team Providers Name Role Phone Sherice [...] 08/20/2019 08/22/2019 [facility] Allergies, Adverse Reactions, Alerts This patient has no known allergies or adverse reactions. Social History Social Habit Start Date Stop Date Quantity Comments Source Sex Assigned At [facility] Medications Ordered Filled Start Stop Current Ordering Indication Dosage Frequency Signature Comments Components Source Medication Medication Date Date Medication? Clinician (SIG) Name Name Misc 2020-0 No 200 mL, Memoria Medication 6-24 Soln-IV, l 18:00: IV, Once, first dose 08/20/19 13:00:00 CDT, stop date 08/20/19 13:00:00 CDT Morphine 2019- No 2 mg = 0.2 Mem oria 6-24 mL, l 17:53: Injection, IV Push, q5min PRN for pain, first dose 08/20/19 12:53:00 CDT Ketorolac 2019-0 No Notes: Memori a 6-24 "Restricte l [...] wheezing, first dose 08/20/19 12:53:00 CDT Ondansetron 0 No 4 mg = 2 Me moria 6-24 mL, l 17:53: Injection, IV Push, q15min PRN for nausea, order duration: 2 doses, first dose 08/20/19 12:53:00 CDT, stop date Limited # of times Promethazin 2019- No 12.5 mg = M emoria e 6-24 0.5 mL, l 17:53: Injection, IM, Once PRN for vomiting, first dose 08/20/19 12:53:00 CDT LR 1,000 mL 2020-0 No 1,000 mL, M emoria 6-24 IV, 75 l 17:53: mL/hr, start date 08/20/19 12:53:00 CDT, 2.04, m2 Saline Lock 2020-0 No 10 mL, Pankaj yoli Flush 6-24 Soln, IV l 17:53: Push, As Indicated PRN for flush, first dose 08/20/19 12:53:00 CDT propofol 2020-0 No 50 mg = 5 Pankaj yoli 6-24 mL, l 17:47: Emulsion, IV, Once, first dose 08/20/19 12:47:00 CDT, stop date 08/20/19 12:47:00 CDT lidocaine 2019-0 No 20 mg = 1 Mem oria 6-24 mL, l 17:47: Injection, IV, Once, first dose 08/20/19 12:47:00 CDT, stop date 08/20/19 12:47:00 CDT midazolam 2019-0 No 2 mg = 2 Pankaj yoli 6-24 mL, l 17:43: Injection, IV, Once, first dose 08/20/19 12:43:00 CDT, stop date 08/20/19 12:43:00 CDT fentaNYL 2019-0 No 100 mcg = Pankaj yoli 6-24 2 mL, l 17:43: Injection, IV, Once, first dose 08/20/19 12:43:00 CDT, stop date 08/20/19 12:43:00 CDT LR 1,000 mL 2019-0 No 1,000 mL, M emoria 6-24 IV, 30 l 16:48: mL/hr, start date 08/20/19 11:48:00 CDT, 2.04, m2 Lidocaine 2019-0 No 0.2 mL, Memor ia 2% 0.2 mL 24 Injection, l IV Start 16:48: Subcutaneo Her banner [[facility]] 00 us, Once PRN for other (see comment), first dose 08/20/19 11:48:00 CDT tiZANidine 2020-0 Yes 4 mg = 1 Mem oria 4 mg oral 6-18 tabs, l tablet 19:51: Oral, As Indicated, at bedtime, pain gabapentin 2019- Yes 300 mg = 1 M emoria [...] BID, l de 500 MG 19:36: 0 Hossein Oral Tablet 00 Refill(s) Vital Signs Vital Name Observation Time Observation Value Comments Source Heart Rate 2019-08-20 19:00:00 [facility] Respitory Rate 2019-08-20 19:00:00 Memori al [place] Systolic (mm Hg) 2019-08-20 19:00:00 Pankaj rial [place]sein Diastolic (mm Hg) 2019-08-20 19:00:00 Mem orial [place] Heart Rate 2019-08-20 18:40:00 [facility] Respitory Rate 2019-08-20 18:40:00 Memori al [place] Systolic (mm Hg) 2019-08-20 18:40:00 Pankaj rial [place]sein Diastolic (mm Hg) 2019-08-20 18:40:00 Mem orial [place] Heart Rate 2019-08-20 18:30:00 [facility] [place] Respitory Rate 2019-08-20 18:30:00 Memori al [place] Systolic (mm Hg) 2019-08-20 18:30:00 Pankaj rial [place]sein Diastolic (mm Hg) 2019-08-20 18:30:00 Mem orial [place] Temperature Oral (F) 2019-08-20 17:50:00 36.3 [facility] Temperature Oral (F) 2019-08-20 16:49:00 37 [facility] Height 2019-08-20 16:49:00 179.5 cm [facility] Height 2019-08-14 19:34:00 179.5 cm [facility] Procedures Procedure Date / Time Performed Performing Clinician Kiara e DESTRUCTION BY NEUROLYTIC 2019-08-20 17:47:00 Me morial [place] AGENT PARAVERTEBRAL FACET JT NERVE W/ IMAGE LUMB/SACRAL EACH [id number] (Right)<sup>1</sup> DESTRUCTION BY NEUROLYTIC 2019-08-20 17:47:00 Me morial [place] AGT PARARVERT FACET JT W/IMAGE LUM/S[place]LE JT [id number] (Right)<sup>2</sup> Hysterectomy 2014-02-26 06:00:00 [facility] Her nettles Back<sup>3</sup> 1990-02-26 06:00:00 [facility] Arvind ann Plan of Care Planned Activity Planned Date Details Comments Source Future Scheduled 2019-10-[address] [facility] - Test 00:00:00 (#1) [code = Medical Center INFLUENZA VACCINE (#1)] Future Scheduled 1999-09-[address] [facility] - Test 00:00:00 malignant neoplasm Medical C enter of cervix (procedure) [code = 051665042] Encounters Start End Encounter Admission Attending Care Care Encounter Source Date/Time Date/Time Type Type Clinicians Facility Department ID 2020-03-05 2020-03-05 Emergency [facility] [id number] 03:34:00 05:15:00 Sylvie Cobb [id number] [place] [id number] [place] [id number] 2020-02-16 2020-02-16 Emergency [facility] [id number] 19:41:00 23:54:00 Garrett Cobb [id number] [place] [id number] [place] [id number] 2019-09-17 2019-09-17 Laboratory Only, [facility] [id number] 11:26:53 11:41:53 Only Test PRIMARY [id number] CARE [id number] [facility] [id number] 2019-09-09 2019-09-09 Emergency [facility] [id number] 00:20:05 02:34:00 Gloria Cobb [id number] [place] [id number] [place] [id number] 2019-08-20 2019-08-20 Outpatient [facility] [id number] Memoria 16:26:44 19:15:00 r Hossein [facility] 2019-08-20 2019-08-20 Outpatient nullFlavo [facility] [id number] [facility] 11:26:44 14:15:00 r lindsay Hossein 2019-08-20 2019-08-20 Outpatient Farebecca, [id number] 11:26:44 14:15:00 Felipe 8 Results Test Description Test Test Comments Results Result Sourc e Time Comments LABORATORY [address] 17:13:00 MM, U/S, BREAST, 2019-03- Diagnostic #[id number] BILATERAL 26 workup per - MM, U/S, [...] Normal BiRad 1-2 Ultrasound BI-RADS: 1 Negative [id number] , DIGITAL 2019-03- Diagnostic #[id number] MAMMO, 26 workup per - MM, DIGITAL MAMMO, DIAGNOSTIC, WITH 13:33:00 radiologist?-> DIAGNOSTIC, WITH ELAN, ELAN, BILATERAL YesReason for BILATERAL INCLUDING INCLUDING CAD Exam:->N63.0 CADBILATERAL DIGITAL DIAGNOSTIC MAMMOGRAM 3D/2D WITH CAD: 04/23/2019 prior exams were available for comparison. The [...]
[2020-10-01 14:59] LABS: Urine Blood Trace-intact (Negative); Urine Glucose Negative (Negative); Urine Protein Negative (Negative); Urine Specific Gravity >=1.030 (1.005-1.030)
[2020-10-01 16:24] LABS: Absolute Lymphocytes (CBC) 2.3 K/uL (0.7-4.9); Basophils % 1.1 % (0-1.3); Lymphocytes % 42.3 % (15.3-44.8); MPV 9.5 fL (7.6-11.3)
[2020-10-01 16:54] LABS: Potassium 3.8 mmol/L (3.5-5.1)
--- NOTE | 2020-10-01 17:28 | EDPHYS ---
Physician Documentation [facility] Name: Catrina Ivy Age: 40 yrs Sex: Female : 1980 Arrival Date: 10/01/2020 Time: 13:00 Bed 26 Private MD: ED Physician Сергей Morales HPI: 10/01 21:05 This 40 yrs old Black Female presents to ER via Wheelchair with complaints of Low Blood kdr Sugar. 21:05 The patient or guardian reports altered mental status, hypoglycemia, that was kdr potentially precipitated by Patient was concerned that a recent medication she took may have caused her blood sugar to lower. That medication was Diflucan potassium. Onset: The symptoms/episode began/occurred suddenly, just prior to arrival. Associated signs and symptoms: Pertinent positives: None. Current symptoms: In the emergency department the patient's symptoms have improved, moderately. The patient has not experienced similar symptoms in the past. The patient has been recently seen by a physician: the patient's primary care provider. 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 LMP N/A - Hysterectomy kg Historical: - Allergies: 13:54 KNDA; kg - Home Meds: 13:54 gabapentin Oral [Active]; Tylenol-Codeine #4 300-60 mg Oral tab [Active]; Metformin kg Oral [Active]; Zoloft 50 mg Oral tab 1 tab once daily [Active]; diclofenac potassium 50 mg oral tab 1 tab 2 times per day [Active]; - PMHx: 13:54 Diabetes - NIDDM; Hypothyroidism; scoliosis; neuropathy; Rheumatoid arthritis; kg - PSHx: 13:54 Total abdominal hysterectomy; Back sx; right shoulder; Ligation of fallopian tube; kg - Immunization history:: Adult Immunizations unknown, Client reports receiving the 2nd dose of the Covid vaccine, Date received: March 2020 [employer] Client reports receiving the 1st dose of the Covid vaccine, February 2020 [employer]. - Social history:: Smoking status: Patient denies any tobacco usage or history of. Patient uses alcohol, occasionally. ROS: 21:05 Constitutional: Negative for fever, chills, and weight loss, Eyes: Negative for injury, kdr pain, redness, and discharge, ENT: Negative for injury, pain, and discharge, Neck: Negative for injury, pain, and swelling, Cardiovascular: Negative for chest pain, palpitations, and edema, Respiratory: Negative for shortness of breath, cough, wheezing, and pleuritic chest pain, Abdomen/GI: Negative for abdominal pain, nausea, vomiting, diarrhea, and constipation, Back: Negative for injury and pain, : Negative for injury, bleeding, discharge, and swelling, MS/Extremity: Negative for injury and deformity, Skin: Negative for injury, rash, and discoloration, Psych: Negative for depression, anxiety, suicide ideation, homicidal ideation, and hallucinations, Allergy/Immunology: Negative for hives, rash, and allergies, Hematologic/Lymphatic: Negative for swollen nodes, abnormal bleeding, and unusual bruising. 21:05 Neuro: Positive for altered mental status, Negative for loss of consciousness, numbness, seizure activity. 21:05 Endocrine: Positive for Patient noted that her glucose was low in the 70s. Her normal glucose is from 90-120. Exam: 21:05 Constitutional: This is a well developed, well nourished patient who is awake, alert, kdr and in no acute distress. Head/Face: Normocephalic, atraumatic. Eyes: Pupils equal round and reactive to light, extra-ocular motions intact. Lids and lashes normal. Conjunctiva and sclera are non-icteric and not injected. Cornea within normal limits. Periorbital areas with no swelling, redness, or edema. Neck: Trachea midline, no thyromegaly or masses palpated, and no cervical lymphadenopathy. Supple, full range of motion without nuchal rigidity, or vertebral point tenderness. No Meningismus. Chest/axilla: Normal chest wall appearance and motion. Nontender with no deformity. No lesions are appreciated. Cardiovascular: Regular rate and rhythm with a normal S1 and S2. No gallops, murmurs, or rubs. Normal PMI, no JVD. No pulse deficits. Respiratory: Lungs have equal breath sounds bilaterally, clear to auscultation and percussion. No rales, rhonchi or wheezes noted. No increased work of breathing, no retractions or nasal flaring. Back: No spinal tenderness. No costovertebral tenderness. Full range of motion. Skin: Warm, dry with normal turgor. Normal color with no rashes, no lesions, and no evidence of cellulitis. MS/ Extremity: Pulses equal, no cyanosis. Neurovascular intact. Full, normal range of motion. Neuro: Awake and alert, GCS 15, oriented to person, place, time, and situation. Cranial nerves II-XII grossly intact. Motor strength 5/5 in all extremities. Sensory grossly intact. Cerebellar exam normal. Normal gait. Psych: Awake, alert, with orientation to person, place and time. Behavior, mood, and affect are within normal limits. 21:05 Abdomen/GI: Soft, non-tender, with normal bowel sounds. No distension or tympany. No guarding or rebound. No evidence of tenderness throughout. Vital Signs: 13:49 BP 105 / 73; Pulse 56; Resp 17; Temp 97.6; Pulse Ox 100% on R/A; Weight 92.99 kg; kg Height 5 ft. 11 in. (180.34 cm) (R); Pain 0/10; 13:49 Body Mass Index 28.59 (92.99 kg, 180.34 cm) kg MDM: 17:27 Patient medically screened. kdr 21:05 Data reviewed: vital signs, nurses notes, lab test result(s), radiologic studies. kdr Counseling: I had a detailed discussion with the patient and/or guardian regarding: the historical points, exam findings, and any diagnostic results supporting the discharge/admit diagnosis, lab results, radiology results, the need for outpatient follow up. 10/01 13:59 Order name: Glucose, Ancillary Testing; Complete Time: 15:46 EDMS 10/01 14:59 Order name: Urine Dipstick-Ancillary; Complete Time: 15:46 EDMS 10/01 15:22 Order name: Urine --Ancillary (enter results) eb 10/01 15:23 Order name: Urine --Ancillary; Complete Time: 17:26 EDMS 10/01 15:46 Order name: CBC with Diff kdr 10/01 15:46 Order name: Chem 7; Complete Time: 17:26 kdr 10/01 17:44 Order name: CBC Smear Scan EDMS Administered Medications: No medications were administered Disposition Summary: 10/01/20 17:27 Discharge Ordered Location: Home kdr Problem: new kdr Symptoms: have improved kdr Condition: Stable kdr Diagnosis - Hypoglycemia, unspecified kdr - Weakness kdr Followup: kdr - With: Private Physician - When: 2 - 3 days - Reason: If symptoms return, Further diagnostic work-up, Recheck today's complaints, Continuance of care, Re-evaluation by your physician Discharge Instructions: - Discharge Summary Sheet kdr - Weakness, [id number]-[id number] kdr - Hypoglycemia, [id number] kdr Forms: - Medication Reconciliation Form kdr - Thank You Letter kdr - Work release form iw Signatures: Dispatcher [employer] Сергей Zuniga MD MD kdr Jade Babcock, RN RN kg
--- NOTE | 2020-10-01 17:28 | ER ---
Nurse's Notes [facility] Name: Catrina Ivy Age: 40 yrs Sex: Female : 1980 Arrival Date: 10/01/2020 Time: 13:00 Bed 26 Private MD: Diagnosis: Hypoglycemia, unspecified;Weakness Presentation: 10/01 13:49 Chief complaint: Patient states: Hot flash, tingly all over, heart racing, bladder kg spasms and low blood sugar of 73 starting at 11:30. Pt Ratoprinter started her on diclofenac potassium and stated that she feels its making her sugar drop. Acc in triage 86. Coronavirus screen: Client denies travel out of the [place] in the last 14 days. At this time, unable to obtain information related to travel outside the [place] At this time, the client does not indicate any symptoms associated with coronavirus-19. Ebola Screen: Patient negative for fever greater than or equal to 101.5 degrees Fahrenheit, and additional compatible Ebola Virus Disease symptoms Patient denies exposure to infectious person. Patient denies travel to an Ebola-affected area in the 21 days before illness onset. Initial Sepsis Screen: Does the patient meet any 2 criteria? No. Patient's initial sepsis screen is negative. Initial Sepsis Screen: Does the patient have a suspected source of infection? No. Patient's initial sepsis screen is negative. Risk Assessment: Do you want to hurt yourself or someone else? Patient reports no desire to harm self or others. Onset of symptoms was October 01, 2020 at 11:30. 13:49 Method Of Arrival: Wheelchair kg 13:49 Acuity: ELICEO 4 kg 15:58 Acuity: ELICEO 3 aa5 Triage Assessment: 13:58 General: Appears in no apparent distress. Behavior is calm, cooperative, appropriate kg for age, quiet. Pain: Denies pain. 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 LMP N/A - Hysterectomy kg Historical: - Allergies: 13:54 KNDA; kg - Home Meds: 13:54 gabapentin Oral [Active]; Tylenol-Codeine #4 300-60 mg Oral tab [Active]; Metformin kg Oral [Active]; Zoloft 50 mg Oral tab 1 tab once daily [Active]; diclofenac potassium 50 mg oral tab 1 tab 2 times per day [Active]; - PMHx: 13:54 Diabetes - NIDDM; Hypothyroidism; scoliosis; neuropathy; Rheumatoid arthritis; kg - PSHx: 13:54 Total abdominal hysterectomy; Back sx; right shoulder; Ligation of fallopian tube; kg - Immunization history:: Adult Immunizations unknown, Client reports receiving the 2nd dose of the Covid vaccine, Date received: March 2020 [employer] Client reports receiving the 1st dose of the Covid vaccine, February 2020 [employer]. - Social history:: Smoking status: Patient denies any tobacco usage or history of. Patient uses alcohol, occasionally. Screenin:58 Abuse screen: Denies threats or abuse. Denies injuries from another. Nutritional kg screening: No deficits noted. Tuberculosis screening: No symptoms or risk factors identified. Fall Risk None identified. Assessment: 16:38 General: Appears in no apparent distress. Behavior is calm, cooperative. Neuro: Level iw of Consciousness is awake, alert, obeys commands, Oriented to person, place, time, situation, Moves all extremities. Full function. Respiratory: Respiratory effort is even, unlabored, Respiratory pattern is regular, symmetrical. Vital Signs: 13:49 BP 105 / 73; Pulse 56; Resp 17; Temp 97.6; Pulse Ox 100% on R/A; Weight 92.99 kg; kg Height 5 ft. 11 in. (180.34 cm) (R); Pain 0/10; 13:49 Body Mass Index 28.59 (92.99 kg, 180.34 cm) kg ED Course: 13:00 Patient arrived in ED. mr 13:53 Triage completed. kg 13:58 Patient has correct armband on for positive identification. kg 15:39 Сергей Morales MD is Attending Physician. kdr 15:53 Kerry Culver, RN is Primary Nurse. iw 16:23 Initial lab(s) drawn, by va, sent to lab. Inserted saline lock: 22 gauge in left iw antecubital area, using aseptic technique. Administered Medications: No medications were administered Outcome: 17:27 Discharge ordered by . kdr 17:46 Patient left the ED. iw Signatures: Сергей Morales MD MD [facility] Gay Manuel Kerry Culver, RN RN Kelli Orr RN RN aa5 Jade Babcock RN RN kg
[2020-10-01 17:44] LABS: Blood Morphology Comment NOTED (NOT SEEN); Platelet Estimate ADEQ; White Blood Cell Scan OK (OK)
[2020-10-01 18:22] VITALS: BP 105/73; TEMP 97.6; O2SAT 100
== END 2020-10-01 17:46 | disposition home or self-care (01) ==
LOC: ER 13:00
DX: E11.649 Type 2 diabetes mellitus with hypoglycemia without coma (principal); R53.1 Weakness; E03.9 Hypothyroidism, unspecified
CPT/HCPCS: 36415; 80048; 81003; 81025; 82947; 85025; 99283

== ENCOUNTER 2024-05-03 19:49 | Emergency (ER) | payer BC, OTHER ==
--- OUTSIDE RECORDS SUMMARY | 2024-05-03 19:52 | XMS REPORT | Clinical Summary ---
Author Name Unknown Organization [facility] Address [address] [place] [address] Care Team Providers Care Mobile Mechanic Name Role Phone Heena Lopez Unavailable Sachi Lopezerly Unavailable Physician, Outside Primary Care Provider Unavail able Encounters Date Type Department Care Team Description 02/09/2024 Documentation Breast Imaging [address] [facility], [address]th [place] [address] Maile Luna, RT after 05/04/2023 Social History Tobacco Use Types Packs/Day Years Used Date Smoking Tobacco: Never Assessed Comments Unknown Sex and Gender Information Value Date Recorded Sex Assigned at Not on file 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 Gender Identity Not on file Sexual Orientation Not on file Plan of Treatment Health Maintenance Due Date Last Done Comments COVID-19 Vaccine (2023-2 5 season) 2023 Influenza Vaccine (#1) 2023 Pneumococcal Vaccine Aged Out No long er eligible based on patient's age to complete this topic Care Teams Mobile Mechanic Relationship Specialty Start Date End Date LopezHeena nielson [address], [address] [place] [id number] PCP - External Follow Up A 01/30/24 Lopez Heena [address], [address] [place], [place] [address] PCP - External Referring 01/30/24 Physician, [place] [address] PCP - General Oncology 01/30/24
[2024-05-03] MEDS ORDERED: MORPHINE 4 MG/ML SYR ONE (20:15)
[2024-05-03] MEDS ORDERED: ONDANSETRON 4 MG/2 ML VIAL ONE (20:15)
--- NOTE | 2024-05-03 21:00 | RAD REPORT ---
EXAM: Chest Single View HISTORY: 43 years Female CHEST PAIN COMPARISON: 07/20/2018 FINDINGS: LUNGS/PLEURA: Hazy bilateral opacities. CARDIAC/MEDIASTINUM: Stable size and configuration. UPPER ABDOMEN: No significant abnormality. BONES: No acute abnormality. LINES/TUBES/OTHER: Fusion hardware in the spine. IMPRESSION: Hazy bilateral opacities could reflect edema or may be accentuated by patient's rotation as a result of scoliosis. A chest CT is pending at time of interpretation.
[2024-05-03] MEDS ORDERED: HYDROMORPHONE HCL 1 MG/ML INJ ONE ×2 (21:18→22:58)
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
[2024-05-04] MEDS ORDERED: HYDROMORPHONE HCL 1 MG/ML INJ ONE (00:58)
[2024-05-04 01:55] VITALS: O2SAT 99
[2024-05-04 01:56] VITALS: BP 132/78; TEMP 97
--- NOTE | 2024-05-06 11:08 | EKG ---
Test Date: 2024-05-03 Test Time: 21:14:28 Web Marketing Coordinator: AF MEASUREMENT RESULTS: Intervals: Rate: 88 TN: 166 QRSD: 82 QT: 360 QTc: 435 [place]: P: 49 TN: 166 QRS: 35 T: 48 INTERPRETIVE STATEMENTS: Normal sinus rhythm Normal ECG Compared to ECG 01/14/2024 18:09:37 Sinus bradycardia no longer present Electronically Signed On 05-06-24 11:01:54 CDT by Arnulfo Stark
== END 2024-05-04 01:11 | disposition short-term general hospital (02) ==
LOC: ER 19:49
DX: S22.42XA Multiple fractures of ribs, left side, initial encounter for closed fracture (principal); S72.051A Unspecified fracture of head of right femur, initial encounter for closed fracture; S32.491A Other specified fracture of right acetabulum, initial encounter for closed fracture; V49.49XA Driver injured in collision with other motor vehicles in traffic accident, initial encounter
CPT/HCPCS: 93005; 70450; 71250; 72125; 74176; 71045; 51702; 99285; J1171 ×3; J2405

== ENCOUNTER 2024-11-12 07:19 | Day surgery (SDC) | payer BC ==
[2024-11-12] MEDS: NA CHLORIDE 0.9% 1,000 ML ONE (08:15)
[2024-11-12 08:59] VITALS: O2SAT 100
[2024-11-12] MEDS ORDERED: LIDOCAINE 1% MPF 5 ML VIAL ONE (09:26)
[2024-11-12 11:23] VITALS: BP 109/47; TEMP 97.6
== END 2024-11-12 10:55 | disposition home or self-care (01) ==
LOC: OR 07:19
PROVIDERS: ATTEND Internal Medicine Gastroenterology
PROC: 0DJD8ZZ Inspection of Lower Intestinal Tract, Via Natural or Artificial Opening Endoscopic (ICD-10-PCS; principal; 2024-11-12 09:30)
DX: Z12.11 Encounter for screening for malignant neoplasm of colon (principal); Z91.148 Patient's other noncompliance with medication regimen for other reason
CPT/HCPCS: 93005; 82947; 45378; J2704; J2003; J7030

== ENCOUNTER 2024-11-26 06:30 | Day surgery (SDC) | payer BC ==
[2024-11-26] MEDS: NA CHLORIDE 0.9% 1,000 ML ONE (07:10)
[2024-11-26] MEDS ORDERED: LIDOCAINE 1% MPF 30 ML VIAL ONE (07:21)
[2024-11-26] MEDS ORDERED: GLYCOPYRROLATE 0.2 MG/ML SYR ONE (07:22)
[2024-11-26] MEDS ORDERED: EPHEDRINE SULF 50 MG/ML VIAL ONE (07:22)
[2024-11-26 08:28] VITALS: O2SAT 100
[2024-11-26 09:12] VITALS: BP 113/56
[2024-11-26 10:18] VITALS: TEMP 97
== END 2024-11-26 09:50 | disposition home or self-care (01) ==
LOC: OR 06:30
PROVIDERS: ATTEND Internal Medicine Gastroenterology
PROC: 0DJD8ZZ Inspection of Lower Intestinal Tract, Via Natural or Artificial Opening Endoscopic (ICD-10-PCS; principal; 2024-11-26 07:30)
DX: R19.4 Change in bowel habit (principal); K64.8 Other hemorrhoids
CPT/HCPCS: 82947; 45378; J2704; J2003; J7030